=== PATIENT | female | born 1985 | race Caucasian/White ===

== ENCOUNTER 2022-12-08 20:02 | Outpatient (REF) | payer BC, SELFPAY ==
[2022-12-14 17:11] LABS: Age Gdln ACOG Testing Note (.); HPV Aptima Negative (Negative); IGP, Aptima HPV, rfx 16/18,45 Note (.)
== END 2022-12-08 20:03 | disposition home or self-care (01) ==
LOC: LAB 20:02
PROVIDERS: Visit Provider Obstetrics & Gynecology
DX: Z01.419 Encounter for gynecological examination (general) (routine) without abnormal findings (principal)
CPT/HCPCS: 87624; G0145

== ENCOUNTER 2023-02-17 13:23 | Outpatient (OUT) | payer BC, SELFPAY ==
--- NOTE | 2023-02-17 13:59 | US_ITS ---
Patient Name: BRONWYN MEHTA MR#: [id number] : 1985 Exam Date: 02/17/2023 Ordering Doctor: DR Jose Jama . RADIOLOGY REPORT PROCEDURE: MM TOMOSYNTHESIS DIAGNOSTIC BI, 02/17/2023, 13:29 US BREAST BI LIMITED, 02/17/2023, 13:58 COMPARISON: None. INDICATIONS: Right Breast PAin N64.4 Calculator Name NCI Breast Cancer Risk Assessment Tool 5 Year Breast Cancer Risk 0.50% Lifetime Breast Cancer Risk 10.20% Personal Breast Cancer No Personal Ovarian Cancer No Treatments None Family Cancers None LOCATION: [facility] BREAST COMPOSITION: Heterogeneously dense,which may obscure small masses. FINDINGS: DIAGNOSTIC CATEGORY 2--BENIGN FINDING: RIGHT BREAST: No significant suspicious finding. This exam includes additional mammographic views for implant evaluation and shows no visible implant abnormality. No abnormal ultrasound findings. LEFT BREAST: No significant suspicious finding. This exam includes additional mammographic views for implant evaluation and shows no visible implant abnormality. Ultrasound evaluation demonstrates a few small benign appearing lymph nodes within upper-outer quadrant / axillary tail. RECOMMENDATIONS: ROUTINE MAMMOGRAM AND CLINICAL EVALUATION IN 12 MONTHS. PLEASE NOTE: A NORMAL MAMMOGRAM DOES NOT EXCLUDE THE POSSIBILITY OF BREAST CANCER. A CLINICALLY SUSPICIOUS PALPABLE LUMP SHOULD BE BIOPSIED. Dictated by: Warren Beltrán M.D. on 02/17/2023 at 14:20 Approved by: Warren Beltrán M.D. on 02/17/2023 at 14:26
== END 2023-02-17 13:24 | disposition home or self-care (01) ==
LOC: MAMMO 13:24
PROVIDERS: Visit Provider Obstetrics & Gynecology
DX: N64.4 Mastodynia (principal)
CPT/HCPCS: 76642; 77066; G0279

== ENCOUNTER 2023-05-02 06:54 | Outpatient (OUT) | payer BC, SELFPAY ==
--- OUTSIDE RECORDS SUMMARY | 2023-05-02 06:56 | XMS_ITS | CCD ---
Author Name Unknown Address [address] [place] [address] Organization [facility] Care Team Providers Care Transport Manager Name Role Phone PAULINA VERMA Admitting Unavailable PAULINA VERMA Attending Unavailable MARLO GOLDEN Referring Unavailable Marlo Golden Primary Care Provider [phone] PAULINA VERMA Attending Unavailable SELF, SELF Referring Unavailable MARLO GOLDEN Primary Care Unavailable ESTIVEN, DR BALES Attending Unavailable ESTIVEN, DR BALES Admitting Unavailable ESTIVEN, DR BALES Consulting Unavailable REQUEST, NONE LISTED Primary Care Unavaila sp DUBOSE, DR CHELO Youssef Consulting Unavailable RITA PRABHAKAR Admitting Unavailable RITA PRABHAKAR Consulting Unavailable RITA PRABHAKAR Attending Unavailable REQUEST, NONE LISTED Primary Care Unavaila RITA Patel Attending Unavailable RITA PRABHAKAR Admitting Unavailable RITA PRABHAKAR Consulting Unavailable REQUEST, NONE LISTED Primary Care Unavaila RITA Patel Admitting Unavailable RITA PRABHAKAR Consulting Unavailable RITA PRABHAKAR Primary Care Unavailable RITA PRABHAKAR Attending Unavailable SEDRICK, DR CHELO Youssef Consulting Unavailable RITA PRABHAKAR Admitting Unavailable REQUEST, NONE LISTED Primary Care Unavaila RITA Patel Attending Unavailable RITA PRABHAKAR Consulting Unavailable MODESTO, DR DHRUV Sadler Attending Unavailabl e MODESTO, DR DHRUV Sadler Admitting Unavailabl e REQUEST, NONE LISTED Primary Care Unavaila sp SALVADOR, DR DHRUV Sadler Consulting Unavailabl RITA Cloud Admitting Unavailable RITA PRABHAKAR Attending Unavailable REQUEST, NONE LISTED Primary Care Unavaila sp DO, DR SHAJI Casillas Consulting Unavailable ESTIVEN, DR BALES Consulting Unavailable RITA PRABHAKAR Admitting Unavailable RITA PRABHAKAR Consulting Unavailable REQUEST, NONE LISTED Primary Care Unavaila RITA Patel Attending Unavailable RITA PRABHAKAR Procedure Practitioner Unavailab delgado DO, DR SHAJI Casillas Attending Unavailable HI, DR SHAJI Casillas Admitting Unavailable REQUEST, DR NONE LISTED Primary Care Unavaila ble ADDI, FLIP Attending Unavailable ADDI, FLIP Admitting Unavailable ADDI, FLIP Consulting Unavailable REQUEST, NONE LISTED Primary Care Unavaila ble ADDI, FLIP Attending Unavailable ADDI, FLIP Admitting Unavailable ROSS, FLIP Consulting Unavailable REQUEST, DR NONE LISTED Primary Care Unavaila ble VANNA, RITA Admitting Unavailable VANNA, RITA Attending Unavailable REQUEST, NONE LISTED Primary Care Unavaila ble SEDRICK, DR CHELO Youssef Consulting Unavailable PRABHAKAR, RITA Consulting Unavailable SEDRICK, DR CHELO Youssef Consulting Unavailable PRABHAKAR, RITA Admitting Unavailable REQUEST, NONE LISTED Primary Care Unavaila ble VANNA, RITA Attending Unavailable VANNA, RITA Consulting Unavailable ESTIVEN, DR BALES Attending Unavailable ESTIVEN, DR BALES Admitting Unavailable REQUEST, NONE LISTED Primary Care Unavailjocelynn JAMA, DR BALES Consulting Unavailable Tien Ghislaine Unavailable Medications Current Medications Medication Drug Class(es) Dates Sig (Normalized) Sig (Original) brexpiprazole 0.5 mg oral tablet (2 sources) Atypical Antipsychotic Rexulti .5mg .5mg Oral Active 24 hr buPROPion hydrochloride 150 mg extended release oral tablet (3 sources) Aminoketone Start: 06-09-2018 buPROPion 150 MG tablet XL TAKE 3 TABLETS BY MOUTH EACH MORNING 0 06/09/2018 Active take 1 tablet by juan luis th once daily in the morning buPROPion HCl ER (XL) 300 MG TAKE 1 TABL ET BY MOUTH EVERY DAY IN THE MORNING Oral for 90 Active Problems Active Problems Problem Classification Problem Date Documented Da te Episodic/Chronic Abdominal pain (8 sources) Pelvic and perineal pain; Translations: [Unspecified abdominal pain] Onset: 02-02-2021 Episodic Conditions associated with dizziness or vertigo (5 sources) Dizziness and giddiness; Translations: [Vertigo] Onset: 12-15-2020 Episodic Disorders usually diagnosed in infancy, childhood, or adolescence (1 source) 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 childhood and adolescence; Translations: [OTH BEHAVR EMOTIONAL D/O CHILD ADOL] Onset: 12-16-2020 Chronic Nausea and vomiting (3 sources) Nausea; Translations: [Nausea] Onset: 12-15-2020 Episodic Nonmalignant breast conditions (2 sources) Atrophy of breast; Translations: [Breast atrophy] Onset: 06-20-2018 06-20-2018 Episodic Other ear and sense organ disorders (2 sources) Other specified disorders of left ear; Translations: [Fullness in ear, left] Episodic Unclassified (1 source) CONTACT W/AND (SUSP) EXPOS COVID-19; Translations: [CONTACT W/AND (SUSP) EXPOS COVID-19] Onset: 12-16-2020 Past or Other Problems Problem Classification Problem Date Documented Da te Episodic/Chronic Calculus of urinary tract (1 source) Personal history of urinary calculi; Translations: [PERSONAL HISTORY OF URINARY CALCULI] Onset: 02-03-2021 Episodic Diabetes mellitus without complication (4 sources) Impaired fasting glucose; Translations: [IMPAIRED FASTING GLUCOSE] Onset: 09-25-2020 Episodic Immunizations and screening for infectious disease (4 sources) Encounter for immunization; Translations: [ENCOUNTER FOR IMMUNIZATION] Onset: 11-06-2020 Episodic Neoplasms of unspecified nature or uncertain behavior (3 sources) Neoplasm of uncertain behavior of skin; Translations: [Neoplasm of uncertain behavior of skin] Onset: 05-17-2017 05-17-2017 Episodic Other aftercare (1 source) Other telephone quotation clerk (current) drug therapy; Translations: [OTH WAREHOUSE ADMINISTRATIVE ASSISTANT CURRENT DRUG THERAPY] Onset: 02-03-2021 Episodic Other and unspecified benign neoplasm (1 source) Benign neoplasm of skin; Translations: [Benign neoplasm of skin] Onset: 06-06-2017 06-06-2017 Episodic Other complications of ; puerperium affecting management of mother (3 sources) 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; Translations: [VARICOSE VNS LOW EXTREM PUERPERIUM] Onset: 12-05-2020 Episodic Other complications of ; puerperium affecting management of mother (1 source) Other mental disorders complicating childbirth; Translations: [OTH MENTAL D/O COMP CHILDBIRTH] Onset: 12-16-2020 Episodic Other complications of ; puerperium affecting management of mother (4 sources) Maternal care for other (suspected) abnormality and damage, not applicable or unspecified; Translations: [MAT CARE OTH ABN DAMGE NA/UNS] Onset: 10-20-2020 Episodic Other complications of (4 sources) Other specified related conditions, third trimester; Translations: [OTH SPEC PREG RELATED COND 3RD TRI] Onset: 12-04-2020 Episodic Other complications of (4 sources) Decreased movements, third trimester, not applicable or unspecified; Translations: [DECR MOVEMENTS 3RD TRI NA/UNS] Onset: 11-20-2020 Episodic Other and delivery including normal (9 sources) Single live ; Translations: [Encounter for supervision of normal , unspecified, third trimester] Onset: 09-22-2020 Episodic Residual codes; unclassified (1 source) 38 weeks gestation of ; Translations: [38 WEEKS GESTATION OF ] Onset: 12-15-2020 Episodic Residual codes; unclassified (1 source) 36 weeks gestation of ; Translations: [36 WEEKS GESTATION OF ] Onset: 11-29-2020 Episodic Residual codes; unclassified (1 source) 32 weeks gestation of ; Translations: [32 WEEKS GESTATION OF ] Onset: 10-26-2020 Episodic Results Test Name Value Interpretation Reference Range Facil ity UA RANDOM W/MICROSCOPICon BACTERIA NONE SEEN Normal NONE SEEN [facility] Comment on above: Performed By: #### U AMIC #### [facility] [address] [place] [address] Dr. Erin Martinez Bilirubin Ql (U) Negative Normal NEGATIVE [facility] Comment on above: Performed By: #### U AMIC #### [facility] [address] [place] [address] Dr. Erin Martinez CAST NONE SEEN Normal NONE SEEN [facility] Comment on above: Performed By: #### U AMIC #### [facility] [address] [address] [address] Erin Martinez Clarity (U) CLEAR Normal CLEAR [facility] Comment on above: Performed By: #### U AMIC #### [facility] [address] [place] [address] Dr. Erin Martinez Color (U) LT. YELLOW Normal YELLOW [facility] Comment on above: Performed By: #### U AMIC #### [facility] [address] [place] [address] Dr. Erin Martinez Crystals LM Nom (Urine sed) NONE SEEN Normal NONE SEEN [facility] Comment on above: Performed By: #### U AMIC #### [facility] [address] [address] [address] Erin Martinez Epithelial cells LM Ql (Urine sed) FEW Abnormal NONE SEEN /RARE [facility] Comment on above: Performed By: #### U AMIC #### [facility] [address] [address] [address] Erin Martinez Glucose Ql (U) Negative Normal NEGATIVE [facility] Comment on above: Performed By: #### U AMIC #### [facility] [address] [address] [address] Erin Martinez Hemoglobin Ql (U) Negative Normal NEGATIVE [facility] Comment on above: Performed By: #### U AMIC #### [facility] [address] [address] [address] Erin Martinez Ketones Ql (U) Negative Normal NEGATIVE [facility] Comment on above: Performed By: #### U AMIC #### [facility] [address] [address] [address] Erin Martinez LEUKOCYTES Negative Normal NEGATIVE [facility] Comment on above: Performed By: #### U AMIC #### [facility] [address] [address] [address] Erin Martinez MUCOUS NONE SEEN Normal NONE SEEN [facility] Comment on above: Performed By: #### U AMIC #### [facility] [address] [address] [address] Eirn Martinez Nitrite Ql (U) Negative Normal NEGATIVE [facility] Comment on above: Performed By: #### U AMIC #### [facility] [address] [address] [address] Erin Martinez pH (U) 6.5 [pH] Normal 5-9 [facility] Comment on above: Performed By: #### U AMIC #### [facility] [address] [address] [address] Erin Martinez RBC NONE SEEN Abnormal 0-2 [facility] Comment on above: Performed By: #### U AMIC #### [facility] [address] [address] [address] Erin Martinez SPEC GRAVITY <=1.005 Abnormal 1.005-<=1.025 [facility] Comment on above: Performed By: #### U AMIC #### [facility] [address] [address] [address] Erin Martinez UA PROTEIN Negative Normal NEGATIVE/ TRACE [facility] Comment on above: Performed By: #### U AMIC #### [facility] [address] [address] [address] Erin Martinez Urobilinogen Qn (U) 0.2 {Darcie'U}/dL Normal 0.2 - 1. 0 [facility] Comment on above: Performed By: #### U AMIC #### [facility] [address] [address] [address] Erin Martinez WBC NONE SEEN Normal NONE SEEN [facility] Comment on above: Performed By: #### U AMIC #### [facility] [address] [address] [address] Erin Martinez US PELVIS TRANSVAGon 022 US PELVIS TRANSVAG EXAMINATION: US PELVIS TRANSVAG HISTORY: Pelvic and perineal pain , IUD placement COMPARISON: No relevant comparison available. TECHNIQUE: Transabdominal and transvaginal sonographic examination. FINDINGS: UTERUS: IUD in lower uterine segment with distal one half of the IUD appearing to have penetrated into the posterior wall myometrium. Uterus size: 10.1 x 5.1 x 6.3 cm ENDOMETRIUM: Normal homogeneous appearance. Endometrial thickness: 7 mm RIGHT OVARY: Normal size and appearance. Blood flow present within ovary on color Doppler. Ovary size: 3.0 x 1.7 x 2.5 cm LEFT OVARY: Not seen. No suspicious adnexal findings. CUL-DE-SAC: Unremarkable. No significant free fluid. BLADDER: Unremarkable. OTHER: None. IMPRESSION: 1. Patient's IUD appears to have penetrated into the posterior uterine wall myometrium, but not through the myometrium. 2. Dr. Jama was notified of these findings. Electronically authenticated by: CHELO DUBOSE Date: 2021-06-10 10:43 Normal [facility] CBC AUTO DIFFon 02-02-2021 BASO # 0.0 103/ul Normal 0.0-0.1 [facility] Comment on above: Performed By: #### C BC #### [facility] [address] [place] [address] Dr. Erin Martinez Basophils/100 WBC (Bld) 0.6 % Normal 0.2-2.0 [facility] Comment on above: Performed By: #### C BC #### [facility] [address] [place] [address] Dr. Erin Martinez EO # 0.0 103/ul Normal 0.0-0.7 [facility] Comment on above: Performed By: #### C BC #### [facility] [address] [place] [address] Dr. Erin Martinez Eosinophils/100 WBC (Bld) 0.6 % Critically low 0.9-7.0 [facility] Comment on above: Performed By: #### C BC #### [facility] [address] [place] [address] Dr. Erin Martinez Erythrocyte distribution width (RBC) [Ratio] 11.1 % Normal 11.0-15.0 [facility] Comment on above: Performed By: #### C BC #### [facility] [address] [place] [address] Dr. Erin Martinez Hematocrit (Bld) [Volume fraction] 40.5 % Normal 36.0-48.0 [facility] Comment on above: Performed By: #### C BC #### [facility] [address] [place] [address] Dr. Erin Martinez Hemoglobin (Bld) [Mass/Vol] 13.7 g/dL Normal 12.0-16.0 [facility] Comment on above: Performed By: #### C BC #### [facility] [address] [place] [address] Dr. Erin Martinez IG # 0.03 10e3/ul Normal 0.00-0.03 [facility] Comment on above: Performed By: #### C BC #### [facility] [address] [place] [address] Dr. Erin Martinez IG % 0.4 % Normal 0.0-0.5 [facility] Comment on above: Performed By: #### C BC #### [facility] [address] [place] [address] Dr. Erin Martinez LYMPH # 1.5 103/ul Normal 1.2-3.8 [facility] Comment on above: Performed By: #### C BC #### [facility] [address] [place] [address] Dr. Erin Martinez Lymphocytes/100 WBC (Bld) 21.8 % Normal 20.5-60.0 [facility] Comment on above: Performed By: #### C BC #### [facility] [address] [place] [address] Dr. Erin Martinez MANUAL DIFF REQ NO Normal [facility] Comment on above: Performed By: #### C BC #### [facility] [address] [place] [address] Dr. Erin Martinez MCH (RBC) [Entitic mass] 31.4 pg Normal 26.7-34.0 [facility] Comment on above: Performed By: #### C BC #### [facility] [address] [place] [address] Dr. Erin Martinez MCHC (RBC) [Mass/Vol] 33.8 g/dL Normal 29.9-35.2 [facility] Comment on above: Performed By: #### C BC #### [facility] [address] [place] [address] Dr. Erin Martinez MCV (RBC) [Entitic vol] 92.7 fL Normal 81.0-99.0 [facility] Comment on above: Performed By: #### C BC #### [facility] [address] [place] [address] Dr. Erin Martinez MONO # 0.5 103/ul Normal 0.3-0.8 [facility] Comment on above: Performed By: #### C BC #### [facility] [address] [place] [address] Dr. Erin Martinez Monocytes/100 WBC (Bld) 7.4 % Normal 1.7-12.0 [facility] Comment on above: Performed By: #### C BC #### [facility] [address] [place] [address] Dr. Erin Martinez NEUT # 4.9 103/ul Normal 1.4-6.5 [facility] Comment on above: Performed By: #### C BC #### [facility] [address] [place] [address] Dr. Erin Martinez Neutrophils/100 WBC (Bld) 69.2 % Normal 43.0-75.0 [facility] Comment on above: Performed By: #### C BC #### [facility] [address] [place] [address] Dr. Erin Martinez Platelet mean volume (Bld) [Entitic vol] 9.6 fL Normal 9.5-13.5 [facility] Comment on above: Performed By: #### C BC #### [facility] [address] [place] [address] Dr. Erin Martinez PLT 210 103/ul Normal 150-450 [facility] Comment on above: Performed By: #### C BC #### [facility] [address] [place] [address] Dr. Erin Martinez RBC 4.37 106/ul Normal 4.20-5.40 [facility] Comment on above: Performed By: #### C BC #### [facility] [address] [place] [address] Dr. Erin Martinez WBC 7.0 103/ul Normal 4.0-11.0 [facility] Comment on above: Performed By: #### C BC #### [facility] [address] [place] [address] Dr. Erin Martinez ER URINE PROFILEon 1 Bilirubin Ql (U) Negative Normal NEGATIVE [facility] Comment on above: Performed By: #### E JANICE SCHULTZ #### [facility] [address] [place] [address] Dr. Erin Martinez Clarity (U) CLEAR Normal CLEAR [facility] Comment on above: Performed By: #### Kye SCHULTZ UMICRO #### [facility] [address] [place] [address] Dr. Erin Martinez Color (U) LT. YELLOW Normal YELLOW [facility] Comment on above: Performed By: #### Kye SCHULTZ UMICRO #### [facility] [address] [place] [address] Dr. Erin Martinez ERUAHD A micrscopic examination will be performed if indicated. Normal [facility] Comment on above: Performed By: #### Kye SCHULTZ UMICRO #### [facility] [address] [place] [address] Dr. Erin Martinez Glucose Ql (U) Negative Normal NEGATIVE [facility] Comment on above: Performed By: #### Kye SCHULTZ UMICRO #### [facility] [address] [place] [address] Dr. Erin Martinez Hemoglobin Ql (U) SMALL Abnormal NEGATIVE [facility] Comment on above: Performed By: #### Kye SCHULTZ UMICRO #### [facility] [address] [place] [address] Dr. Erin Martinez Ketones Ql (U) Negative Normal NEGATIVE [facility] Comment on above: Performed By: #### Kye SCHULTZ UMICRO #### [facility] [address] [place] [address] Dr. Erin Martinez LEUKOCYTES Negative Normal NEGATIVE [facility] Comment on above: Performed By: #### Kye SCHULTZ UMICRO #### [facility] [address] [place] [address] Dr. Erin Martinez Nitrite Ql (U) Negative Normal NEGATIVE [facility] Comment on above: Performed By: #### Kye SCHULTZ UMICRO #### [facility] [address] [place] [address] Dr. Erin Martinez pH (U) 6.5 [pH] Normal 5-9 [facility] Comment on above: Performed By: #### Kye SCHULTZ UMICRO #### [facility] [address] [place] [address] Dr. Erin Martinez SPEC GRAVITY 1.015 Normal 1.005-<=1.025 [facility] Comment on above: Performed By: #### RONI COSTARO #### [facility] [address] [place] [address] Dr. Erin Martinez UA PROTEIN Negative Normal NEGATIVE/ TRACE [facility] Comment on above: Performed By: #### RONI COSTARO #### [facility] [address] [place] [address] Dr. Erin Martinez UR MICRO IND INDICATED Normal [facility] Comment on above: Performed By: #### RONI COSTARO #### [facility] [address] [place] [address] Dr. Erin Martinez Urobilinogen Qn (U) 0.2 {Darcie'U}/dL Normal 0.2 - 1. 0 [facility] Comment on above: Performed By: #### RONI COSTARO #### [facility] [address] [place] [address] Dr. Erin Martinez LIPASEon 02-02-2021 Lipase [Catalytic activity/Vol] 94.0 U/L Normal 23.0-300.0 [facility] Comment on above: Performed By: #### L IPA #### [facility] [address] [place] [address] Dr. Erin Martinez URINE MICROSCOPIC ONLYon BACTERIA NONE SEEN Normal NONE SEEN [facility] Comment on above: Performed By: #### RONI COSTARO #### [facility] [address] [place] [address] Dr. Erin Martinez Bacteria identified Cx Nom (U) NOT INDICATED Normal [facility] Comment on above: Performed By: #### RONI COSTARO #### [facility] [address] [place] [address] Dr. Erin Martinez CAST NONE SEEN Normal NONE SEEN [facility] Comment on above: Performed By: #### RONI COSTARO #### [facility] [address] [place] [address] Dr. Erin Martinez Crystals LM Nom (Urine sed) NONE SEEN Normal NONE SEEN [facility] Comment on above: Performed By: #### E ANTOINE UMICRO #### [facility] [address] [place] [address] Dr. Erin Martinez Epithelial cells LM Ql (Urine sed) RARE Normal NONE SEEN /RARE [facility] Comment on above: Performed By: #### Kye SCHULTZ UMICRO #### [facility] [address] [place] [address] Dr. Erin Martinez MUCOUS NONE SEEN Normal NONE SEEN [facility] Comment on above: Performed By: #### E RUDomonique, UMICRO #### [facility] [address] [place] [address] Dr. Erin Martinez RBC 0-2 Normal 0-2 [facility] Comment on above: Performed By: #### Kye SCHULTZ UMICRO #### [facility] [address] [place] [address] Dr. Erin Martinez WBC NONE SEEN Normal NONE SEEN [facility] Comment on above: Performed By: #### E ANTOINE UMICRO #### [facility] [address] [place] [address] Dr. Erin Martinez CBC AUTO DIFFon 12-06-2020 BASO # 0.1 103/ul Normal 0.0-0.1 [facility] Comment on above: Performed By: #### C BC #### [facility] [address] [place] [address] Dr. Erin Martinez Basophils/100 WBC (Bld) 0.6 % Normal 0.2-2.0 [facility] Comment on above: Performed By: #### C BC #### [facility] [address] [place] [address] Dr. Erin Martinez EO # 0.1 103/ul Normal 0.0-0.7 [facility] Comment on above: Performed By: #### C BC #### [facility] [address] [place] [address] Dr. Erin Martinez Eosinophils/100 WBC (Bld) 1.0 % Normal 0.9-7.0 [facility] Comment on above: Performed By: #### C BC #### [facility] [address] [address] [address] Erin Martinez Erythrocyte distribution width (RBC) [Ratio] 12.9 % Normal 11.0-15.0 [facility] Comment on above: Performed By: #### C BC #### [facility] [address] [address] [address] Erin Martinez Hematocrit (Bld) [Volume fraction] 36.6 % Normal 36.0-48.0 [facility] Comment on above: Performed By: #### C BC #### [facility] [address] [address] [address] Erin Martinez Hemoglobin (Bld) [Mass/Vol] 12.3 g/dL Normal 12.0-16.0 [facility] Comment on above: Performed By: #### C BC #### [facility] [address] [place] [address] Dr. Erin Martinez IG # 0.09 10e3/ul Critically high 0.00-0.03 [facility] Comment on above: Performed By: #### C BC #### [facility] [address] [place] [address] Dr. Erin Martinez IG % 1.1 % Critically high 0.0-0.5 [facility] Comment on above: Performed By: #### C BC #### [facility] [address] [place] [address] Dr. Erin Martinez LYMPH # 1.1 103/ul Critically low 1.2-3.8 [facility] Comment on above: Performed By: #### C BC #### [facility] [address] [place] [address] Dr. Erin Martinez Lymphocytes/100 WBC (Bld) 13.9 % Critically low 20.5-60.0 [facility] Comment on above: Performed By: #### C BC #### [facility] [address] [place] [address] Dr. Erin Martinez MANUAL DIFF REQ NO Normal [facility] Comment on above: Performed By: #### C BC #### [facility] [address] [place] [address] Dr. Erin Martinez MCH (RBC) [Entitic mass] 33.2 pg Normal 26.7-34.0 [facility] Comment on above: Performed By: #### C BC #### [facility] [address] [place] [address] Dr. Erin Martinez MCHC (RBC) [Mass/Vol] 33.6 g/dL Normal 29.9-35.2 [facility] Comment on above: Performed By: #### C BC #### [facility] [address] [place] [address] Dr. Erin Martinez MCV (RBC) [Entitic vol] 98.9 fL Normal 81.0-99.0 [facility] Comment on above: Performed By: #### C BC #### [facility] [address] [place] [address] Dr. Erin Martinez MONO # 0.6 103/ul Normal 0.3-0.8 [facility] Comment on above: Performed By: #### C BC #### [facility] [address] [place] [address] Dr. Erin Martinez Monocytes/100 WBC (Bld) 7.4 % Normal 1.7-12.0 [facility] Comment on above: Performed By: #### C BC #### [facility] [address] [place] [address] Dr. Erin Martinez NEUT # 6.2 103/ul Normal 1.4-6.5 [facility] Comment on above: Performed By: #### C BC #### [facility] [address] [place] [address] Dr. Erin Martinez Neutrophils/100 WBC (Bld) 76.0 % Critically high 43.0-75.0 [facility] Comment on above: Performed By: #### C BC #### [facility] [address] [place] [address] Dr. Erin Martinez Platelet mean volume (Bld) [Entitic vol] 9.9 fL Normal 9.5-13.5 [facility] Comment on above: Performed By: #### C BC #### [facility] [address], [place] [address] Dr. Erin Martinez PLT 113 103/ul Critically low 150-450 [facility] Comment on above: Result Comment: NO P LATELET CLUMPING SEEN Performed By: #### C BC #### [facility] [address] [address] [address] Erin Martinez RBC 3.70 106/ul Critically low 4.20-5.40 [facility] Comment on above: Performed By: #### C BC #### [facility] [address] [address] [address] Erin Martinez WBC 8.2 103/ul Normal 4.0-11.0 [facility] Comment on above: Performed By: #### C BC #### [facility] [address] [address] [address] Erin Martinez ASYMPTOMATIC COVID-19 ANTIGE Non 12-05-2020 EUA Statement SEE BELOW Normal [facility] Comment on above: Result Comment: This test has not been FDA cleared or approved, but has been authorized by the FDA under an Emergency Use Authorization (EUA) for use by authorized laboratories certified under CLIA that meet the requirements to perform moderate or high complexity testing. This test has been authorized only for the detection of proteins from SARS-CoV-2, not for any other viruses or pathogens. The emergency use of this test is authorized for the duration of the declaration that circumstances exist justifying the authorization of emergency use of in vitro diagnostic tests for detection and/or diagnosis of Covid-19 under section 564(b)(1) of the Act, 21 U.S.C. 360bbb-3(b)(1), unless the declaration is terminated or authorization is revoked sooner. Performed By: #### C BC #### [facility] [address] [place] [address] Dr. Erin Martinez SARS-CoV-2 (COVID-19) RNA MARLA+probe Ql (Unsp spec) Negative Normal NEGATIVE [facility] Comment on above: Result Comment: Nega tive results are presumptive. They do not preclude infection and should not be used as the sole basis for treatment decisions. Additional confirmatory testing by a molecular method should be considered. Performed By: #### C BC #### [facility] [address] [place] [address] Dr. Erin Martinez CBC AUTO DIFFon 12-05-2020 BASO # 0.1 103/ul Normal 0.0-0.1 [facility] Comment on above: Performed By: #### C BC #### [facility] [address] [place] [address] Dr. Erin Martinez Basophils/100 WBC (Bld) 1.1 % Normal 0.2-2.0 [facility] Comment on above: Performed By: #### C BC #### [facility] [address] [place] [address] Dr. Erin Martinez EO # 0.1 103/ul Normal 0.0-0.7 [facility] Comment on above: Performed By: #### C BC #### [facility] [address] [place] [address] Dr. Erin Martinez Eosinophils/100 WBC (Bld) 1.0 % Normal 0.9-7.0 [facility] Comment on above: Performed By: #### C BC #### [facility] [address] [place] [address] Dr. Erin Martinez Erythrocyte distribution width (RBC) [Ratio] 13.0 % Normal 11.0-15.0 [facility] Comment on above: Performed By: #### C BC #### [facility] [address] [place] [address] Dr. Erin Martinez Hematocrit (Bld) [Volume fraction] 38.5 % Normal 36.0-48.0 [facility] Comment on above: Performed By: #### C BC #### [facility] [address] [place] [address] Dr. Erin Martinez Hemoglobin (Bld) [Mass/Vol] 12.9 g/dL Normal 12.0-16.0 [facility] Comment on above: Performed By: #### C BC #### [facility] [address] [place] [address] Dr. Erin Martinez IG # 0.13 10e3/ul Critically high 0.00-0.03 [facility] Comment on above: Performed By: #### C BC #### [facility] [address] [place] [address] Dr. Erin Martinez IG % 1.8 % Critically high 0.0-0.5 [facility] Comment on above: Performed By: #### C BC #### [facility] [address] [place] [address] Dr. Erin Martinez LYMPH # 1.6 103/ul Normal 1.2-3.8 [facility] Comment on above: Performed By: #### C BC #### [facility] [address] [place] [address] Dr. Erin Martinez Lymphocytes/100 WBC (Bld) 22.5 % Normal 20.5-60.0 [facility] Comment on above: Performed By: #### C BC #### [facility] [address] [place] [address] Dr. Erin Martinez MANUAL DIFF REQ NO Normal [facility] Comment on above: Performed By: #### C BC #### [facility] [address] [place] [address] Dr. Erin Martinez MCH (RBC) [Entitic mass] 33.0 pg Normal 26.7-34.0 [facility] Comment on above: Performed By: #### C BC #### [facility] [address] [place] [address] Dr. Erin Martinez MCHC (RBC) [Mass/Vol] 33.5 g/dL Normal 29.9-35.2 [facility] Comment on above: Performed By: #### C BC #### [facility] [address] [place] [address] Dr. Erin Martinez MCV (RBC) [Entitic vol] 98.5 fL Normal 81.0-99.0 [facility] Comment on above: Performed By: #### C BC #### [facility] [address] [place] [address] Dr. Erin Martinez MONO # 0.5 103/ul Normal 0.3-0.8 [facility] Comment on above: Performed By: #### C BC #### [facility] [address] [place] [address] Dr. Erin Martinez Monocytes/100 WBC (Bld) 6.6 % Normal 1.7-12.0 [facility] Comment on above: Performed By: #### C BC #### [facility] [address] [place] [address] Dr. Erin Martinez NEUT # 4.9 103/ul Normal 1.4-6.5 [facility] Comment on above: Performed By: #### C BC #### [facility] [address] [place] [address] Dr. Erin Martinez Neutrophils/100 WBC (Bld) 67.0 % Normal 43.0-75.0 [facility] Comment on above: Performed By: #### C BC #### [facility] [address] [place] [address] Dr. Erin Martinez Platelet mean volume (Bld) [Entitic vol] 10.7 fL Normal 9.5-13.5 [facility] Comment on above: Performed By: #### C BC #### [facility] [address] [place] [address] Dr. Erin Martinez PLT 125 103/ul Critically low 150-450 [facility] Comment on above: Result Comment: smea r reviewed, platelet count confirmed Performed By: #### C BC #### [facility] [address] [place] [address] Dr. Erin Martinez RBC 3.91 106/ul Critically low 4.20-5.40 [facility] Comment on above: Performed By: #### C BC #### [facility] [address] [place] [address] Dr. Erin Martinez WBC 7.3 103/ul Normal 4.0-11.0 [facility] Comment on above: Performed By: #### C BC #### [facility] [address] [place] [address] Dr. Erin Martinez DRUG SCREEN RAPID (URINE)on 12-05-2020 AMP Negative Normal NEGATIVE [facility] Comment on above: Performed By: #### D RUGRPD #### [facility] [address] [place] [address] Dr. Erin Martinez BAR Negative Normal NEGATIVE [facility] Comment on above: Performed By: #### D RUGRPD #### [facility] [address] [place] [address] Dr. Erin Martinez BUP Negative Normal NEGATIVE [facility] Comment on above: Performed By: #### D RUGRPD #### [facility] [address] [place] [address] Dr. Erin Martinez BZO Negative Normal NEGATIVE [facility] Comment on above: Performed By: #### D RUGRPD #### [facility] [address] [place] [address] Dr. Erin Martinez HIRAL Negative Normal NEGATIVE [facility] Comment on above: Performed By: #### D RUGRPD #### [facility] [address] [place] [address] Dr. Erin Martinez CUT-OFFS SEE BELOW Normal [facility] Comment on above: Result Comment: AMP (Amphetamine): 500ng/mL, BAR (Barbituates): 200 ng/mL, BZO (Benzodiazepines): 150 ng/mL, BUP (Buprenorphine): 10 ng/mL, HIRAL (Cocaine): 150 ng/mL, mAMP (Methamphetamine): 500 ng/mL, MTD (Methadone): 200 ng/mL, OPI (Opiates): 100 ng/mL, OXY (Oxycodone): 100 ng/mL, PCP (Phencyclidine): 25 ng/mL, PPX (Propoxyphene): 300 ng/mL, THC (Cannabinoids): 50 ng/mL, TCA (Trycyclic Antidepressants): 300 ng/mL Performed By: #### D RUGRPD #### [facility] [address] [place] [address] Dr. Erin Martinez DRUG CUT HEADER DRUG CLASS TEST SYSTEM CUT-OFF CONCENTRATIONS ARE FOLLOWS: Normal [facility] Comment on above: Performed By: #### D RUGRPD #### [facility] [address] [place] [address] Dr. Erin Martinez mAMP Negative Normal NEGATIVE [facility] Comment on above: Performed By: #### D RUGRPD #### [facility] [address] [address] [address] Erin Martinez MTD Negative Normal NEGATIVE [facility] Comment on above: Performed By: #### D RUGRPD #### [facility] [address] [address] [address] Erin Martinez OPI Negative Normal NEGATIVE [facility] Comment on above: Performed By: #### D RUGRPD #### [facility] [address] [place] [address] Dr. Erin Martinez OXY Negative Normal NEGATIVE [facility] Comment on above: Performed By: #### D RUGRPD #### [facility] [address] [place] [address] Dr. Erin Martinez PCP Negative Normal NEGATIVE [facility] Comment on above: Performed By: #### D RUGRPD #### [facility] [address] [place] [address] Dr. Erin Martinez PPX Negative Normal NEGATIVE [facility] Comment on above: Performed By: #### D RUGRPD #### [facility] [address] [place] [address] Dr. Erin Martinez TCA Negative Normal NEGATIVE [facility] Comment on above: Performed By: #### D RUGRPD #### [facility] [address] [place] [address] Dr. Erin Martinez THC Negative Normal NEGATIVE [facility] Comment on above: Performed By: #### D RUGRPD #### [facility] [address] [place] [address] Dr. Erin Martinez TYPE AND SCREENon 12-05-2020 TYPE AND SCREEN Negative Normal [facility] Comment on above: Performed By: #### C BC #### [facility] [address] [place] [address] Dr. Erin Martinez POINT OF CARE GLUCOSEon 11-18 Glucose [Mass/Vol] 122 mg/dL Critically high 74-106 [facility] Comment on above: Performed By: #### P OCGLUC #### [facility] [address] [address] [address] Erin Martinez US PREG BIOPHY W NON STRESSo n 12-04-2020 US PREG BIOPHY W NON STRESS EXAMINATION: US PREG BIOPHY W NON STRESS HISTORY: Dizziness COMPARISON: Ultrasound biophysical 11/20/2020 TECHNIQUE: Ultrasound biophysical profile was performed. FINDINGS: BREATHING MOVEMENTS: 2.0 GROSS BODY MOVEMENTS: 2.0 TONE: 2.0 QUALITATIVE AMNIOTIC FLUID VOLUME: 2.0 PRESENTATION: Cephalic HEART RATE: 138.5 bpm bpm. AMNIOTIC FLUID VOLUME: 14.7 cm GESTATIONAL AGE: 38 weeks 6 days CONCLUSION: Total biophysical profile score 8.0. Electronically authenticated by: CHELO DUBOSE Date: 2020-12-04 16:40 Normal [facility] US PREG BIOPHY W NON STRESSo n 11-20-2020 US PREG BIOPHY W NON STRESS EXAMINATION: US PREG BIOPHY W NON STRESS HISTORY: Reduced movement COMPARISON: No relevant comparison available. TECHNIQUE: Ultrasound biophysical profile was performed in the radiology department. non-reactive stress testing was performed by nursing staff in the birthing center. FINDINGS: BREATHING MOVEMENTS: 2.0 GROSS BODY MOVEMENTS: 2.0 TONE: 2.0 QUALITATIVE AMNIOTIC FLUID VOLUME: 2.0 PRESENTATION: CEPHALIC HEART RATE: 131.7 bpm H.B./min AMNIOTIC FLUID VOLUME: 13.5 cm cm GESTATIONAL AGE: 36 weeks 6 days CONCLUSION: Total biophysical profile score: 8.0 Electronically authenticated by: SHAJI DO Date: 2020-11-20 16:04 Normal [facility] CHLAMYDIA/GONOCOCCUS MARLA (SW AB/URINE/PAPon 11-14-2020 Chlamydia trachomatis, MARLA Negative Normal Negative [facility] Comment on above: Performed By: #### C BC #### [facility] [address] [address] [address] Erin Martinez Neisseria gonorrhoeae, MARLA Negative Normal Negative [facility] Comment on above: Performed By: #### C BC #### [facility] [address] [place] [address] Dr. Erin Martinez GROUP B STREP CULTUREon 10-19 S. agalactiae Ag Ql (Unsp spec) Culture Observations: NEGATIVE FOR GROUP B STREPTOCOCCUS. Normal [facility] Comment on above: Performed By: #### C BC #### [facility] [address] [address] [address] Erin Martinez PREG GROWTHon 10-20-2020 US PREG GROWTH EXAMINATION: US PREG GROWTH HISTORY: condition affecting obstetrical care of mother COMPARISON: No relevant comparison available. FINDINGS: Heart Rate: 151.7 bpm Number: 1.0 Position: CEPHALIC Amniotic Fluid Volume: 13.6 cm Maximum Vertical Pocket: 4.4 cm BIOMETRY: BPD: 8.0 cm cm; 32 weeks 1 days HC: 29.9 cmcm; 33 weeks 1 days AC: 30.0 cm cm; 33 weeks 6 days FL: 6.0 cm cm; 31 weeks 2 days EFW: 2079.0 grams 56th percentile FL/AC: 20.1 FL/BPD: 75.2 HC/AC: 1.0 GESTATIONAL AGE: Age by EDC: 32 weeks 3 days HELENA by EDC: 12/12/2020 Age by US: 32 weeks, 4 days HELENA by US: 12/11/2020 IMPRESSION: 1. Single live intrauterine with growth detailed above. 2. Previously seen echogenic focus within the left cardiac ventricle is not visible during today's evaluation of the heart. 3. Incidental venous herrera within the placenta. Electronically authenticated by: CHELO DUBOSE Date: 2020-10-20 13:39 Normal [facility] GTT 3 HR PREGon 09-25-2020 Glucose [Mass/Vol] 86 mg/dL Normal 74-106 [facility] Comment on above: Performed By: #### P OCGLUC #### [facility] [address] [address] [address] Erin Martinez Glucose [Mass/Vol] 93 mg/dL Normal [facility] Comment on above: Performed By: #### P OCGLUC #### [facility] [address] [address] [address] Erin Martinez Glucose [Mass/Vol] 78 mg/dL Normal [facility] Comment on above: Performed By: #### P OCGLUC #### [facility] [address] [address] [address] Erin Martinez Glucose [Mass/Vol] 79 mg/dL Normal [facility] Comment on above: Performed By: #### P OCGLUC #### [facility] [address] [place] [address] Dr. Erin Martinez CBC AUTO DIFFon 09-22-2020 BASO # 0.1 103/ul Normal 0.0-0.1 [facility] Comment on above: Performed By: #### C BC #### [facility] [address] [place] [address] Jonathan Ana Basophils/100 WBC (Bld) 0.7 % Normal 0.2-2.0 [facility] Comment on above: Performed By: #### C BC #### [facility] [address] [place] [address] Jonathan Ana EO # 0.1 103/ul Normal 0.0-0.7 [facility] Comment on above: Performed By: #### C BC #### [facility] [address] [place] [address] Jonathan Ana Eosinophils/100 WBC (Bld) 0.7 % Critically low 0.9-7.0 [facility] Comment on above: Performed By: #### C BC #### [facility] [address] [place] [address] Jonathan Ana Erythrocyte distribution width (RBC) [Ratio] 12.7 % Normal 11.0-15.0 [facility] Comment on above: Performed By: #### C BC #### [facility] [address] [place] [address] Jonathan Ana Hematocrit (Bld) [Volume fraction] 36.1 % Normal 36.0-48.0 [facility] Comment on above: Performed By: #### C BC #### [facility] [address] [place] [address] Jonathan Ana Hemoglobin (Bld) [Mass/Vol] 12.2 g/dL Normal 12.0-16.0 [facility] Comment on above: Performed By: #### C BC #### [facility] [address] [place] [address] Jonathancurtis Perez IG # 0.08 10e3/ul Critically high 0.00-0.03 [facility] Comment on above: Performed By: #### C BC #### [facility] [address] [id number] Jonathan Ana IG % 1.2 % Critically high 0.0-0.5 [facility] Comment on above: Performed By: #### C BC #### [facility] [address] [address] Jonathan Ana LYMPH # 1.3 103/ul Normal 1.2-3.8 [facility] Comment on above: Performed By: #### C BC #### [facility] [address] [place] [address] Jonathan Perez Lymphocytes/100 WBC (Bld) 18.6 % Critically low 20.5-60.0 [facility] Comment on above: Performed By: #### C BC #### [facility] [address] [place] [address] Jonathan Perez MANUAL DIFF REQ NO Normal [facility] Comment on above: Performed By: #### C BC #### [facility] [address] [place] [address] Jonathancurtis Perez MCH (RBC) [Entitic mass] 32.8 pg Normal 26.7-34.0 [facility] Comment on above: Performed By: #### C BC #### [facility] [address] [place] [address] Jonathancurtis Perez MCHC (RBC) [Mass/Vol] 33.8 g/dL Normal 29.9-35.2 [facility] Comment on above: Performed By: #### C BC #### [facility] [address] [place] [address] Jonathancurtis Solisen MCV (RBC) [Entitic vol] 97.0 fL Normal 81.0-99.0 [facility] Comment on above: Performed By: #### C BC #### [facility] [address] [place] [address] Jonathan Ana MONO # 0.4 103/ul Normal 0.3-0.8 [facility] Comment on above: Performed By: #### C BC #### [facility] [address] [id number] Jonathan Ana Monocytes/100 WBC (Bld) 5.5 % Normal 1.7-12.0 [facility] Comment on above: Performed By: #### C BC #### [facility] [address] [id number] Jonathan Ana NEUT # 4.9 103/ul Normal 1.4-6.5 [facility] Comment on above: Performed By: #### C BC #### [facility] [address] [id number] Jonathan Ana Neutrophils/100 WBC (Bld) 73.3 % Normal 43.0-75.0 [facility] Comment on above: Performed By: #### C BC #### [facility] [address] [place], [place] [id number] Jonathancurtis Perez Platelet mean volume (Bld) [Entitic vol] 9.8 fL Normal 9.5-13.5 [facility] Comment on above: Performed By: #### C BC #### [facility] [address] [place], [place] [id number] Jonathan Ana PLT 156 103/ul Normal 150-450 [facility] Comment on above: Performed By: #### C BC #### [facility] [address] [place], [place] [id number] Jonathan Ana RBC 3.72 106/ul Critically low 4.20-5.40 [facility] Comment on above: Performed By: #### C BC #### [facility] [address] [place], [place] [id number] Jonathan Ana WBC 6.7 103/ul Normal 4.0-11.0 [facility] Comment on above: Performed By: #### C BC #### [facility] [address] [place], [place] [id number] Jonathan Solisen GLUCOSE - 1HRon 09-22-2020 Glucose [Mass/Vol] 135 mg/dL Critically high 74-106 [facility] Comment on above: Performed By: #### G LU1HR #### [facility] [address] [id number] Jonathan Perez US PREG ANATOMY SINGLEon US PREG ANATOMY SINGLE EXAMINATION: US PREG ANATOMY SINGLE HISTORY: Gestation period, 16 weeks COMPARISON: No relevant comparison available. TECHNIQUE: Transabdominal sonographic examination was performed for obstetrical and evaluation. FINDINGS: Number: 1 Heart Rate: 143.6 bpm H.B. /min Amniotic Fluid Volume: Subjectively normal Placental Location: Anterior without previa. Cervix Length: 3.5 cm , closed ANATOMY: Normal Structures -cerebellum, choroid plexus, cisterna magna, lateral cerebral ventricles, orbits, midline falx, hard palate, four-chamber heart, RVOT, LVOT, stomach, kidneys, bladder, umbilical cord insertion into abdomen, three-vessel cord, cervical spine, thoracic spine, lumbar spine, sacral spine, right upper extremity, left upper extremity, right lower extremity, left lower extremity. SUBOPTIMALLY SEEN: None ABNORMALITIES: 2 mm echogenic focus within the left cardiac ventricle. BIOMETRY: BPD: 4.7 cm 20 weeks 2 days HC: 17.4 cm 19 weeks 6 days AC: 14.4 cm 19 weeks 5 days FL: 3.2 cm 19 weeks 6 days EFW:315.6 grams; (13th percentile) FL/AC: 22.2 FL/BPD: 67.7 HC/AC: 1.2 GESTATIONAL AGE: Age by EDC: 20 weeks 4 days HELENA by EDC: 12/12/2020 Age by current US: 20 weeks 0 days HELENA by current US: 12/16/2020 IMPRESSION: 1. Single live intrauterine with growth detailed above. 2. Echogenic focus within the left cardiac ventricle; nonspecific but this can be seen with the trisomy syndromes. No additional associated findings. Electronically authenticated by: CHELO DUBOSE Date: 2020-07-29 09:02 Normal [facility] Vital Signs Date Time Vital Sign Value Performing Clinician Facility 09-23-2022 10:00-0400 Body height 165.1 cm Ghislaine Chauhan Other [facility] Other 09-23-2022 10:00-0400 Body mass index (BMI) [Ratio] 21.3 kg/m2 Ghislaine Chauhan Other [facility] Other 09-23-2022 10:00-0400 Body weight 58.06 kg Ghislaine Chauhan Other [facility] Other 09-23-2022 10:00-0400 Diastolic blood pressure 68 mm[Hg] Ghislaine Chauhan Other [facility] Other 09-23-2022 10:00-0400 Systolic blood pressure 98 mm[Hg] Ghislaine Chauhan Other [facility] Other 06-20-2018 09:54-0400 BMI (Body Mass Index) 20.72 kg/m2 [employer] 06-20-2018 09:54-0400 BP Diastolic 65 mm[Hg] [facility] 06-20-2018 09:54-0400 BP Systolic 99 mm[Hg] [facility] 06-20-2018 09:54-0400 Height 165.1 cm [facility] 06-20-2018 09:54-0400 Pulse (Heart Rate) 77 /min [facility] 06-20-2018 09:54-0400 Weight 56.47 kg [facility] Encounters Encounter Date Encounter Type Care Provider Facility Start: 04-06-2023 End: 04-06-2023 ambulatory Ghislaine Chauhan Other [facility] Other Start: 04-06-2023 Telephone encounter Ghislaine Chauhan [facility] Start: 09-23-2022 End: 09-23-2022 ambulatory Ghislaine Chauhan Other [facility] Other Start: 09-23-2022 Encounter for genera l adult medical examination without abnormal findings Ghislaine Chauhan [facility] Start: 09-23-2022 Initial preventive medicine new pt age 18-39yrs Ghislaine Chauhan [facility] Start: 06-10-2021 End: 06-10-[address] NII JAMA Facility:[facility] Start: 06-10-2021 End: 06-11-[address] NII JAMA Facility:[facility] Start: 02-02-2021 End: 02-02-[address] DHRUV SALVADOR Facility:[facility] Start: 12-05-2020 End: 12-07-2020 Evaluation and management of inpatient RITA PRABHAKAR Facility:[facility] Start: 12-04-2020 End: 12-04-[address] CHELO DUBOSE Facility:[facility] Start: 11-20-2020 End: 11-20-2020 ambulatory RITA PRABHAKAR Facility:[facility] Start: 11-11-2020 End: 11-11-2020 ambulatory RITA PRABHAKAR Facility:[facility] Start: 11-06-2020 End: 11-07-2020 ambulatory FLIP FONTANA Facility:[facility] Start: 10-20-2020 End: 10-21-2020 ambulatory RITA PRABHAKAR Facility:[facility] Start: 10-16-2020 End: 10-17-2020 ambulatory FLIP FONTANA Facility:[facility] Start: 09-25-2020 End: 09-26-2020 ambulatory RITA PRABHAKAR Facility:[facility] Start: 09-22-2020 End: 09-23-2020 ambulatory RITA PRABHAKAR Facility:[facility] Start: 07-29-2020 End: 07-30-[address] CHELO DUBOSE Facility:[facility] Start: 06-30-[address] SHAJI [place] y:[facility] Start: 06-20-2018 Patient encounter procedure [facility] Start: 06-20-2018 End: 06-20-2018 Patient encounter procedure [facility] Work Phone: [facility] Comment on above: Breast atrophy (Prim cali Dx) Start: 05-25-2017 End: 05-25-2017 Patient encounter procedure [facility] Start: 04-01-2016 Encounter for genera l adult medical examination without abnormal findings Ghislaine Chauhan Other [facility] Other Start: 03-24-2016 Pre-procedure evaluation check Ghislaine Chauhan Other [facility] Other Procedures Date Procedure Procedure Detail Performing Clinician Start: 12-05-2020 Delivery of Products of Conception, External Approach DR NII JAMA Start: 12-05-2020 Drainage of Amniotic Fluid, Therapeutic from Products of Conception, Via Natural or Artificial Opening DR NII JAMA Start: 12-05-2020 Introduction of Othe r Hormone into Peripheral Vein, Percutaneous Approach DR NII JAMA Counseling Ghislaine Chauhan Other Plan of Treatment Date Care Activity Detail Author Start: 11-18-2018 Influenza vaccination INFLUENZ A VACCINE (Season Ended) [facility] Start: 10-28-2004 Screening for malign ant neoplasm of cervix PAP SMEAR DISCUSSION [facility] Start: 10-28-2002 Third diphtheria, te tanus and acellular pertussis (DTaP) vaccination TDAP (ADULT) [facility] Start: 10-28-2001 Tetanus vaccination [facility] Start: 10-28-1996 HIV screening HIV SCREENING DISCUSSI ON [facility] Immunizations Immunization Date Immunization Notes Care Provider [facility] 01-10-2020 influenza, seasonal, injectable Ghislaine Chauhan Other [facility] Other Payers Date Payer Category Payer Unknown [id number] 2018 Unknown [id number] 2018 Unknown xxxxxxxxx [id number] 2018 Unknown [id number] 1983 Unknown [id number] 2.16.840 .[id number] 1983 Unknown [id number] 2.16.84 [id number] 1983 Unknown [id number] 2.16.84 0.1.112259.3.579.2.593 1983 Unknown [id number] 2.16.84 0.1.625039.3.579.2.593 1983 Unknown [id number] 2.16.84 0.1.792696.3.579.2.593 1983 Unknown [id number] 2.16.84 0.1.024269.3.579.2.593 1983 Unknown [id number] 2.16.84 0.1.303636.3.579.2.593 1983 Unknown [id number] 2.16.84 0.1.351810.3.579.2.593 1983 Unknown [id number] 2.16.84 0.1.713916.3.579.2.593 1983 Unknown [id number] 2.16.84 0.1.790705.3.579.2.593 1983 Unknown [id number] 2.16.84 0.1.497578.3.579.2.593 1983 Unknown [id number] 2.16.84 0.1.931159.3.579.2.593 1983 Unknown [id number] 2.16.84 0.1.883620.3.579.2.593 1983 Unknown [id number] 2.16.84 0.1.257609.3.579.2.593 1983 Unknown [id number] 2.16.84 0.1.723567.3.579.2.593 [facility] [id number] Social History Date Type Detail Facility Start: 06-20-2018 Tobacco smoking status [facility] Never smoker [employer] [facility]igned At Not on file [employer] [facility] Other Evaluation note 09-23-2022 Note Date & Type Note Facility 09-23-2022 Evaluation note Encounter Date Diagnosis Assessment Notes Sep, Well adult exam (ICD-10 - Z00.00) We have discussed the necessity of following up with PCP regularly as well as specialists, as needed. Discussed F/U with dentistry and optometry at least yearly. Discussed all preventative measures/ cancer screenings as applicable to this patient. Emphasized the importance of a reduced fat, low carb diet to promote heart health and controlled blood sugars. Reviewed social history and ensured patient is safe within the home today. Pt denies any abuse of alcohol, nicotine, caffeine or recreational drugs. I have ensured patient is of stable mental and physical health today. We have discussed appropriate F/U schedule as well as blood work and vaccinations that apply. All questions answered and patient is sent home pleased, without concerns. [facility] Other Evaluation note Note Date & Type Note Facility Evaluation note No Information [facility] Other History general Narrative - Reported Note Date & Type Note Facility History general Narrative - Reported Type Medical History depression Surgical History Tonsillectomy Surgical History breast augmentation Hospitalization History See above Hospitalization History Childbirth x3 [facility] Other Summary Purpose Family History No Family History Records FoundNo Family History Records FoundNo Family History Records Found Advance Direct[facility] No Advanced Directives Records FoundNo Advanced Directives Records FoundNo Advanced Directives Records Found History of Present Illness * Paulina Verma MD - 06/20/2018 9:15 AM EDT Subjective: Sangeeta Tolbert is an 32 y.o. female who presents for evaluation of breast implants. She has noted increased rippling and wants to make sure this is OK. She had been running recently and may have lost some weight.. No Known Allergies Current Outpatient Medications Medication Sig Dispense Refill buPROPion 150 MG tablet XL TAKE 3 TABLETS BY MOUTH EACH MORNING 0 No current facility-administered medications for this visit. No past medical history on file. Past Surgical History: Procedure Laterality Date EXCISION LESION SKIN EAR EYELID FACE LIP NOSE N/A 05/25/2017 Excision lesion chin x2 (0.5cm, 0.5cm) EXCISION LESION SKIN TRUNK N/A 05/25/2017 Excision lesion back (2cm) REPAIR WOUND COMPLEX CHEEK CHIN FOREHEAD MOUTH NECK N/A 05/25/2017 Laterality: N/A; Surgeon: Paulina Verma MD; Location: [facility] OR REPAIR WOUND COMPLEX TRUNK N/A 05/25/2017 Laterality: N/A; Surgeon: Paulina Vemra MD; Location: [facility] OR AUGMENTATION BREAST 2017 History reviewed. No pertinent family history. Social History Socioeconomic History Marital status: Spouse name: Not on file Number of children: Not on file Years of education: Not on file Highest education level: Not on file Occupational History Not on file Social Needs Financial resource strain: Not on file Food insecurity: Worry: Not on file Inability: Not on file Transportation needs: Medical: Not on file Non-medical: Not on file Tobacco Use Smoking status: Never Smoker Smokeless tobacco: Never Used Substance and Sexual Activity Alcohol use: No Drug use: Not on file Sexual activity: Not on file Lifestyle Physical activity: Days per week: Not on file Minutes per session: Not on file Stress: Not on file Relationships Social connections: Talks on phone: Not on file Gets together: Not on file Attends confucianism service: Not on file Active member of club or organization: Not on file Attends meetings of clubs or organizations: Not on file Relationship status: Not on file Intimate partner violence: Fear of current or ex partner: Not on file Emotionally abused: Not on file Physically abused: Not on file Forced sexual activity: Not on file Other Topics Concern Not on file Social History Narrative Not on file Review of Systems Pertinent items are noted in HPI. General Plastics Review of Systems: Do you have any of the following: Chills, Fatigue, Fever or Night Sweats: no. Ear pain or eye discharge: no. Hearing loss or visual changes: no. Sore throat or chronic cough: no. Shortness of breath: no. Chest pain, swelling, or heart palpitations: no. Abdominal pain: no. Constipation or diarrhea: no. Heartburn or Nausea: no. Rash or skin problems: no. Dizziness or numbness: no. Headaches or Migraines: no. Seizures: no. Joint pain, joint swelling or muscle weakness: no. Bruise or bleed easily: no. Any swollen lymph nodes: no. Objective: Blood pressure 99/65, pulse 77, height 1.651 m (5' 5 ), weight 56.5 kg (124 lb 8 oz). Implants soft. Incisions well approximated. Implants have dropped and rippling noted on inferior aspect. Assessment: Breast implant rippling likely more visible d/t weight loss. Plan: The pt is to call with any further problems or questions, otherwise I will see them back PRN. * ChenCourt suarez - 06/20/2018 9:15 AM EDT General Plastics Review of Systems: Do you have any of the following: Chills, Fatigue, Fever or Night Sweats: no. Ear pain or eye discharge: no. Hearing loss or visual changes: no. Sore throat or chronic cough: no. Shortness of breath: no. Chest pain, swelling, or heart palpitations: no. Abdominal pain: no. Constipation or diarrhea: no. Heartburn or Nausea: no. Rash or skin problems: no. Dizziness or numbness: no. Headaches or Migraines: no. Seizures: no. Joint pain, joint swelling or muscle weakness: no. Bruise or bleed easily: no. Any swollen lymph nodes: no. documented in this encounter Assessments Diagnosis Breast atrophy- Primary Atrophy of breast Additional Source Comments INFORMATION SOURCE (unrecogn ized section and content) DATE CREATED AUTHOR 05/08/2018 [facility] DATE CREATED AUTHOR AUTHOR'S ORGANIZ ATION 06/22/2018 [facility] DATE CREATED AUTHOR AUTHOR'S ORGANIZ ATION 06/18/2021 [facility] Reason for Visit (unrecogniz ed section and content) refill Reason Comments Cosmetic Pt had breast augmen tation in 2017. Pt is having rippling of implants bilaterally. States that she is working out more and not sure if it is due to this. Pt states that the skin is indented at times. FOR RECORDS PERTAINING TO PATIENTS WHO ARE OR HAVE BEEN ENROLLED IN A CHEMICAL DEPENDENCY/SUBSTANCEABUSE PROGRAM, SOME INFORMATION MAY BE OMITTED. This clinical summary was aggregated from multiple sources. Caution should be exercised in using it in the provision of clinical care. This summary normalizes information from multiple sources, and as a consequence, information in this document may materially change the coding, format and clinical context of patient data. In addition, data may be omitted in some cases. CLINICAL DECISIONS SHOULD BE BASED ON THE PRIMARY CLINICAL RECORDS. [employer] provides no warranty or guarantee of the accuracy or completeness of information in this document.
[2023-05-02 07:18] LABS: Basophils Percent Auto 0.9 % (0.2-2.0); Eosinophils Absolute Auto 0.1 10^3/uL (0.0-0.7); Eosinophils Percent Auto 1.4 % (0.9-7.0); Hematocrit 40.9 % (36.0-48.0); Hemoglobin 13.9 g/dL (12.0-16.0); Immature Granulocytes Abs Auto 0.01 10^3/uL (0.00-0.03); Immature Granulocytes Pct Auto 0.2 % (0.0-0.5); Lymphocytes Percent Auto 46.9 % (20.5-60.0); Mean Platelet Volume 9.6 fL (9.5-13.5); Monocytes Absolute Auto 0.4 10^3/uL (0.3-0.8); Monocytes Percent Auto 9.9 % (1.7-12.0); Neutrophils Absolute Auto 1.7 10^3/uL (1.4-6.5); Neutrophils Percent Auto 40.7 % (43.0-75.0); Platelet Count 190 10^3/uL (150-450); Red Blood Count 4.35 10^6/uL (4.20-5.40); Red Cell Distribution Width 11.3 % (11.0-15.0); White Blood Count 4.2 10^3/uL (4.0-11.0)
[2023-05-02 07:51] LABS: Alanine Aminotransferase 17 U/L (14-59); Albumin Globulin Ratio 1.4; Alkaline Phosphatase 37 U/L (46-116); Aspartate Amino Transferase 11 U/L (15-37); BUN Creatinine Ratio 15.3; Bilirubin Total 0.8 mg/dL (0.2-1.0); Calcium 8.8 mg/dL (8.5-10.1); Carbon Dioxide 28.9 mmol/L (21.0-32.0); Chloride 104 mmol/L (98-107); Chol HDL Ratio 1.8; Cholesterol 160 mg/dL (<=200); Estimated Average Glucose 91 mg/dL; Estimated GFR (African America >60 (>=60); Estimated GFR (Non-African Ame >60 (>=60); Globulin 2.8 g/dL; Glucose 93 mg/dL (74-106); Glycohemoglobin A1C 4.8 % (4.5-6.2); HDL Cholesterol 89 mg/dL (40-60); Potassium 3.9 mmol/L (3.5-5.1); Sodium 142 mmol/L (136-145); Total Protein 6.8 g/dL (6.4-8.2); Triglycerides 32 mg/dL (<=150); VLDL CHOLESTEROL 6.4 mg/dL
== END 2023-05-02 06:55 | disposition home or self-care (01) ==
DX: Z79.899 Other long term (current) drug therapy (principal)
CPT/HCPCS: 36415; 80053; 80061; 82306; 83036; 85025

== ENCOUNTER 2024-02-29 20:24 | Outpatient (REF) | payer BC, SELFPAY ==
--- OUTSIDE RECORDS SUMMARY | 2024-02-29 20:27 | XMS_ITS | CCD ---
Author Organization [facility] Care Team Providers Care Circuit Walker Name Role Phone PAULINA VERMA Admitting Unavailable PAULINA VERMA Attending Unavailable MARLO GOLDEN Referring Unavailable Marlo Golden Primary Care Provider PAULINA VERMA Attending Unavailable SELF, SELF Referring Unavailable MARLO GOLDEN Primary Care Unavailable ESTIVEN, DR BALES Attending Unavailable ESTIVEN, DR BALES Admitting Unavailable ESTIVEN, DR BALES Consulting Unavailable REQUEST, NONE LISTED Primary Care Unavaila sp DUBOSE, DR CHELO Youssef Consulting Unavailable RITA PRABHAKAR Admitting Unavailable VANNA, RITA Consulting Unavailable RITA PRABHAKAR Attending Unavailable REQUEST, NONE LISTED Primary Care Unavaila RITA Patel Attending Unavailable VANNA, RITA Admitting Unavailable RITA PRABHAKAR Consulting Unavailable REQUEST, NONE LISTED Primary Care Unavaila RITA Patel Admitting Unavailable VANNA, RITA Consulting Unavailable VANNA, RITA Primary Care Unavailable RITA PRABHAKAR Attending Unavailable SEDRICK, DR CHELO Youssef Consulting Unavailable RITA PRABHAKAR Admitting Unavailable REQUEST, NONE LISTED Primary Care Unavaila RITA Patel Attending Unavailable RITA PRABHAKAR Consulting Unavailable MODESTO, DR DHRUV Sadler Attending Unavailabl e MODESTO, DR DHRUV Sadler Admitting Unavailabl e REQUEST, NONE LISTED Primary Care Unavaila sp SALVADOR, DR DHRUV Sadler Consulting Unavailabl e RITA PRABHAKAR Admitting Unavailable RITA PRABHAKAR Attending Unavailable REQUEST, NONE LISTED Primary Care Unavaila sp DO, DR SHAJI Casillas Consulting Unavailable ESTIVEN, DR BALES Consulting Unavailable RITA PRABHAKAR Admitting Unavailable RITA PRABHAKAR Consulting Unavailable REQUEST, NONE LISTED Primary Care Unavaila RITA Patel Attending Unavailable RITA PRABHAKAR Procedure Practitioner Unavailab delgado DO, DR SHAJI Casillas Attending Unavailable HI, DR SHAJI Casillas Admitting Unavailable REQUEST, NONE LISTED Primary Care Unavaila ble ADDI FLIP Attending Unavailable ADDI, FLIP Admitting Unavailable FLIP FONTANA Consulting Unavailable REQUEST, NONE LISTED Primary Care Unavaila FLIP Mills Attending Unavailable ADDI, FLIP Admitting Unavailable ADDI, FLIP Consulting Unavailable REQUEST, NONE LISTED Primary Care Unavaila ble VANNA, RITA Admitting Unavailable VANNA, RITA Attending Unavailable REQUEST, NONE LISTED Primary Care Unavaila ble SEDRICK, DR CHELO Youssef Consulting Unavailable VANNA, RITA Consulting Unavailable SEDRICK, DR CHELO Youssef Consulting Unavailable RITA PRABHAKAR Admitting Unavailable REQUEST, NONE LISTED Primary Care Unavaila ble VANNA, RITA Attending Unavailable VANNA, RITA Consulting Unavailable ESTIVEN, DR BALES Attending Unavailable ESTIVEN, DR BALES Admitting Unavailable REQUEST, NONE LISTED Primary Care Unavailjocelynn JAMA, DR BALES Consulting Unavailable Ghislaine Chauhan Unavailable Medications Current Medications Medication Drug Class(es) [...] 05-17-2017 Episodic Other aftercare (1 source) 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 Erin Martinez Bilirubin Ql (U) Negative Normal NEGATIVE [facility] Comment on above: Performed By: #### U AMIC #### [facility] [address] [place] [address] Dr. Erin Martinez CAST NONE SEEN Normal NONE SEEN [facility] Comment on above: Performed By: #### U AMIC #### [facility] [address] [place] [address] Dr. Erin Martinez Clarity (U) CLEAR Normal CLEAR [facility] Comment on above: Performed By: #### U AMIC #### [facility] [address] [place] [address] Dr. Erin Martinez Color (U) LT. YELLOW Normal YELLOW [facility] Comment on above: Performed By: #### U AMIC #### [facility] [address] [place] [address] Dr. Erin Martinez Crystals LM Nom (Urine sed) NONE SEEN Normal NONE SEEN [facility] Comment on above: Performed By: #### U AMIC #### [facility] [address] [address] [address] Erin Martinez Epithelial cells LM Ql (Urine sed) FEW Abnormal NONE SEEN /RARE [facility] Comment on above: Performed By: #### U AMIC #### [facility] [address] [address] [address] Erin Martinez Glucose Ql (U) Negative Normal NEGATIVE [facility] [place] [facility] Comment on above: Performed By: #### U AMIC #### [facility] [address] [address] [address] Erin Martinez Hemoglobin Ql (U) Negative Normal NEGATIVE [facility] Comment on above: Performed By: #### U AMIC #### [facility] [address] [address] [address] Erin Martinez Ketones Ql (U) Negative Normal NEGATIVE [facility] [place] [facility] Comment on above: Performed By: #### U AMIC #### [facility] [address] [address] [address] Erin Martinez LEUKOCYTES Negative Normal NEGATIVE [facility] Comment on above: Performed By: #### U AMIC #### [facility] [address] [address] [address] Erin Martinez MUCOUS NONE SEEN Normal NONE SEEN [facility] Comment on above: Performed By: #### U AMIC #### [facility] [address] [place] [address] Dr. Erin Martinez Nitrite Ql (U) Negative Normal NEGATIVE [facility] [place] [facility] Comment on above: Performed By: #### U AMIC #### [facility] [address] [address] [address] Erin Martinez pH (U) 6.5 [pH] Normal 5-9 [facility] Comment on above: Performed By: #### U AMIC #### [facility] [address] [place] [address] Dr. Erin Martinez RBC NONE SEEN Abnormal 0-2 [facility] Comment on above: Performed By: #### U AMIC #### [facility] [address] [place] [address] Dr. Erin Martinez SPEC GRAVITY <=1.005 Abnormal 1.005-<=1.025 [facility] Comment on above: Performed By: #### U AMIC #### [facility] [address] [address] [address] Erin Martinez UA PROTEIN Negative Normal NEGATIVE/ TRACE [facility] Comment on above: Performed By: #### U AMIC #### [facility] [address] [address] [address] Erin Martinez Urobilinogen Qn (U) 0.2 {Darcie'U}/dL Normal 0.2 - 1. 0 [facility] Comment on above: Performed By: #### U AMIC #### [facility] [address] [place] [address] Dr. Erin Martinez WBC NONE SEEN Normal NONE SEEN [facility] Comment on above: Performed By: #### U AMIC #### [facility] [address] [place] [address] Dr. Erin Martinez US PELVIS TRANSVAGon 022 [...] CHELO DUBOSE Date: 2021-06-10 10:43 Normal [facility] CBC AUTO DIFFon 02-02-2021 BASO # 0.0 103/ul Normal 0.0-0.1 [facility] Comment on above: Performed By: #### C BC #### [facility] [address] [place] [address] Dr. Erin Martinez Basophils/100 WBC (Bld) 0.6 % Normal 0.2-2.0 [facility] Comment on above: Performed By: #### C BC #### [facility] [address] [place] [address] Dr. Erin Martinez EO # 0.0 103/ul Normal 0.0-0.7 [facility] Comment on above: Performed By: #### C BC #### [facility] [address] [place] [address] Dr. Erin Martinez Eosinophils/100 WBC (Bld) 0.6 % Critically low 0.9-7.0 [facility] Comment on above: Performed By: #### C BC #### [facility] [address] [place] [address] Dr. Erin Martinez Erythrocyte distribution width (RBC) [Ratio] 11.1 % Normal 11.0-15.0 [facility] Comment on above: Performed By: #### C BC #### [facility] [address] [place] [address] Dr. Erin Martinez Hematocrit (Bld) [Volume fraction] 40.5 % Normal 36.0-48.0 [facility] Comment on above: Performed By: #### C BC #### [facility] [address] [place] [address] Dr. Erin Martinez Hemoglobin (Bld) [Mass/Vol] 13.7 g/dL Normal 12.0-16.0 [facility] Comment on above: Performed By: #### C BC #### [facility] [address] [place] [address] Dr. Erin Martinez IG # 0.03 10e3/ul Normal 0.00-0.03 [facility] Comment on above: Performed By: #### C BC #### [facility] [address] [place] [address] Dr. Erin Martinez IG % 0.4 % Normal 0.0-0.5 [facility] Comment on above: Performed By: #### C BC #### [facility] [address] [place] [address] Dr. Erin Martinez LYMPH # 1.5 103/ul Normal 1.2-3.8 [facility] Comment on above: Performed By: #### C BC #### [facility] [address] [place] [address] Dr. Erin Martinez Lymphocytes/100 WBC (Bld) 21.8 % Normal 20.5-60.0 [facility] Comment on above: Performed By: #### C BC #### [facility] [address] [place] [address] Dr. Erin Martinez MANUAL DIFF REQ NO Normal [facility] Comment on above: Performed By: #### C BC #### [facility] [address] [place] [address] Dr. Erin Martinez MCH (RBC) [Entitic mass] 31.4 pg Normal 26.7-34.0 [facility] Comment on above: Performed By: #### C BC #### [facility] [address] [place] [address] Dr. Erin Martinez MCHC (RBC) [Mass/Vol] 33.8 g/dL Normal 29.9-35.2 [facility] Comment on above: Performed By: #### C BC #### [facility] [address] [place] [address] Dr. Erin Martinez MCV (RBC) [Entitic vol] 92.7 fL Normal 81.0-99.0 [facility] Comment on above: Performed By: #### C BC #### [facility] [address] [place] [address] Dr. Erin Martinez MONO # 0.5 103/ul Normal 0.3-0.8 [facility] Comment on above: Performed By: #### C BC #### [facility] [address] [place] [address] Dr. Erin Martinez Monocytes/100 WBC (Bld) 7.4 % Normal 1.7-12.0 [facility] Comment on above: Performed By: #### C BC #### [facility] [address] [place] [address] Dr. Erin Martinez NEUT # 4.9 103/ul Normal 1.4-6.5 [facility] Comment on above: Performed By: #### C BC #### [facility] [address] [place] [address] Dr. Erin Martinez Neutrophils/100 WBC (Bld) 69.2 % Normal 43.0-75.0 [facility] Comment on above: Performed By: #### C BC #### [facility] [address] [place] [address] Dr. Erin Martinez Platelet mean volume (Bld) [Entitic vol] 9.6 fL Normal 9.5-13.5 [facility] Comment on above: Performed By: #### C BC #### [facility] [address] [place] [address] Dr. Erin Martinez PLT 210 103/ul Normal 150-450 [facility] Comment on above: Performed By: #### C BC #### [facility] [address] [place] [address] Dr. Erin Martinez RBC 4.37 106/ul Normal 4.20-5.40 [facility] Comment on above: Performed By: #### C BC #### [facility] [address] [place] [address] Dr. Erin Martinez WBC 7.0 103/ul Normal 4.0-11.0 [facility] Comment on above: Performed By: #### C BC #### [facility] [address] [place] [address] Dr. Erin Martinez ER URINE PROFILEon 1 Bilirubin Ql (U) Negative Normal NEGATIVE [facility] Comment on above: Performed By: #### RONI COSTARO #### [facility] [address] [place] [address] Dr. Erin Martinez Clarity (U) CLEAR Normal CLEAR [facility] Comment on above: Performed By: #### RONI COSTARO #### [facility] [address] [address] [address] Erin Martinez Color (U) LT. YELLOW Normal YELLOW [facility] Comment on above: Performed By: #### RONI COSTARO #### [facility] [address] [place] [address] Dr. Erin JACKSON A micrscopic examination will be performed if indicated. Normal [facility] Comment on above: Performed By: #### ROSALINE COSTAICRO #### [facility] [address] [place] [address] Dr. Erin Martinez Glucose Ql (U) Negative Normal NEGATIVE [facility] [place] [facility] Comment on above: Performed By: #### RONI COSTARO #### [facility] [address] [place] [address] Dr. Erin Martinez Hemoglobin Ql (U) SMALL Abnormal NEGATIVE [facility] Comment on above: Performed By: #### RONI COSTARO #### [facility] [address] [place] [address] Dr. Erin Martinez Ketones Ql (U) Negative Normal NEGATIVE [facility] [place] [facility] Comment on above: Performed By: #### RONI COSTARO #### [facility] [address] [place] [address] Dr. Erin Martinez LEUKOCYTES Negative Normal NEGATIVE [facility] Comment on above: Performed By: #### RONI COSTARO #### [facility] [address] [place] [address] Dr. Erin Martinez Nitrite Ql (U) Negative Normal NEGATIVE [facility] [place] [facility] Comment on above: Performed By: #### Kye SCHULTZ UMICRO #### [facility] [address] [place] [address] Dr. Erin Martinez pH (U) 6.5 [pH] Normal 5-9 [facility] Comment on above: Performed By: #### ROSALINE COSTAICRO #### [facility] [address] [place] [address] Dr. Erin Martinez SPEC GRAVITY 1.015 Normal 1.005-<=1.025 [facility] Comment on above: Performed By: #### E RUR, UMICRO #### [facility] [address] [place] [address] Dr. Erin Martinez UA PROTEIN Negative Normal NEGATIVE/ TRACE [facility] Comment on above: Performed By: #### E RUR, UMICRO #### [facility] [address] [place] [address] Dr. Erin Martinez UR MICRO IND INDICATED Normal [facility] Comment on above: Performed By: #### E RUR, UMICRO #### [facility] [address] [place] [address] Dr. Erin Martinez Urobilinogen Qn (U) 0.2 {Darcie'U}/dL Normal 0.2 - 1. 0 [facility] Comment on above: Performed By: #### E ANTOINE UMICRO #### [facility] [address] [place] [address] Dr. Erin Martinez LIPASEon 02-02-2021 Lipase [Catalytic activity/Vol] 94.0 U/L Normal 23.0-300.0 [facility] Comment on above: Performed By: #### L IPA #### [facility] [address] [place] [address] Dr. Erin Martinez URINE MICROSCOPIC ONLYon BACTERIA NONE SEEN Normal NONE SEEN [facility] Comment on above: Performed By: #### E ANTOINE UMICRO #### [facility] [address] [place] [address] Dr. Erin Martinez Bacteria identified Cx Nom (U) NOT INDICATED Normal [facility] Comment on above: Performed By: #### E RUDomonique UMICRO #### [facility] [address] [place] [address] Dr. Erin Martinez CAST NONE SEEN Normal NONE SEEN [facility] Comment on above: Performed By: #### E RUR, UMICRO #### [facility] [address] [place] [address] Dr. Erin Martinez Crystals LM Nom (Urine sed) NONE SEEN Normal NONE SEEN [facility] Comment on above: Performed By: #### Kye SCHULTZ UMICRO #### [facility] [address] [place] [address] Dr. Erin Martinez Epithelial cells LM Ql (Urine sed) RARE Normal NONE SEEN /RARE [facility] Comment on above: Performed By: #### ROSALINE COSTAICRO #### [facility] [address] [place] [address] Dr. Erin Martinez MUCOUS NONE SEEN Normal NONE SEEN [facility] Comment on above: Performed By: #### Kye SCHULTZ ICRO #### [facility] [address] [place] [address] Dr. Erin Martinez RBC 0-2 Normal 0-2 [facility] Comment on above: Performed By: #### ROSALINE COSTAICRO #### [facility] [address] [place] [address] Dr. Erin Martinez WBC NONE SEEN Normal NONE SEEN [facility] Comment on above: Performed By: #### Kye SCHULTZ [facility] #### [facility] [address] [place] [address] Dr. Erin Martinez CBC AUTO DIFFon 12-06-2020 BASO # 0.1 103/ul Normal 0.0-0.1 [facility] Comment on above: Performed By: #### C BC #### [facility] [address] [place] [address] Dr. rEin Martinez Basophils/100 WBC (Bld) 0.6 % Normal 0.2-2.0 [facility] Comment on above: Performed By: #### C BC #### [facility] [address] [place] [address] Dr. Erin Martinez EO # 0.1 103/ul Normal 0.0-0.7 [facility] Comment on above: Performed By: #### C BC #### [facility] [address] [place] [address] Dr. Erin Martinez Eosinophils/100 WBC (Bld) 1.0 % Normal 0.9-7.0 [facility] Comment on above: Performed By: #### C BC #### [facility] [address] [place] [address] Dr. Erin Martinez Erythrocyte distribution width (RBC) [Ratio] 12.9 % Normal 11.0-15.0 [facility] Comment on above: Performed By: #### C BC #### [facility] [address] [address] [address] Erin Martinez Hematocrit (Bld) [Volume fraction] 36.6 % Normal 36.0-48.0 [facility] Comment on above: Performed By: #### C BC #### [facility] [address] [place] [address] Dr. Erin Martinez Hemoglobin (Bld) [Mass/Vol] 12.3 g/dL Normal 12.0-16.0 [facility] Comment on above: Performed By: #### C BC #### [facility] [address] [place] [address] Dr. Erin Martinez IG # 0.09 10e3/ul Critically high 0.00-0.03 [facility] Comment on above: Performed By: #### C BC #### [facility] [address] [place] [address] Dr. Erin Martinez IG % 1.1 % Critically high 0.0-0.5 [facility] Comment on above: Performed By: #### C BC #### [facility] [address] [place] [address] Dr. Erin Martinez LYMPH # 1.1 103/ul Critically low 1.2-3.8 [facility] Comment on above: Performed By: #### C BC #### [facility] [address] [place] [address] Dr. Erin Martinez Lymphocytes/100 WBC (Bld) 13.9 % Critically low 20.5-60.0 [facility] Comment on above: Performed By: #### C BC #### [facility] [address] [place] [address] Dr. Erin Martinez MANUAL DIFF REQ NO Normal [facility] Comment on above: Performed By: #### C BC #### [facility] [address] [place] [address] Dr. Erin Martinez MCH (RBC) [Entitic mass] 33.2 pg Normal 26.7-34.0 [facility] Comment on above: Performed By: #### C BC #### [facility] [address] [place] [address] Dr. Erin Martinez MCHC (RBC) [Mass/Vol] 33.6 g/dL Normal 29.9-35.2 [facility] Comment on above: Performed By: #### C BC #### [facility] [address] [place] [address] Dr. Erin Martinez MCV (RBC) [Entitic vol] 98.9 fL Normal 81.0-99.0 [facility] Comment on above: Performed By: #### C BC #### [facility] [address] [place] [address] Dr. Erin Martinez MONO # 0.6 103/ul Normal 0.3-0.8 [facility] Comment on above: Performed By: #### C BC #### [facility] [address] [place] [address] Dr. Erin Martinez Monocytes/100 WBC (Bld) 7.4 % Normal 1.7-12.0 [facility] Comment on above: Performed By: #### C BC #### [facility] [address] [place] [address] Dr. Erin Martinez NEUT # 6.2 103/ul Normal 1.4-6.5 [facility] Comment on above: Performed By: #### C BC #### [facility] [address] [place] [address] Dr. Erin Martinez Neutrophils/100 WBC (Bld) 76.0 % Critically high 43.0-75.0 [facility] Comment on above: Performed By: #### C BC #### [facility] [address] [place] [address] Dr. Erin Martinez Platelet mean volume (Bld) [Entitic vol] 9.9 fL Normal 9.5-13.5 [facility] Comment on above: Performed By: #### C BC #### [facility] [address] [place], [place] [address] Dr. Erin Martinez PLT 113 103/ul Critically low 150-450 [facility] Comment on above: Result Comment: NO P LATELET CLUMPING SEEN Performed By: #### C BC #### [facility] [address] [place], [place] [address] Dr. Erin Martinez RBC 3.70 106/ul Critically low 4.20-5.40 [facility] Comment on above: Performed By: #### C BC #### [facility] [address] [address] [address] Erin Martinez WBC 8.2 103/ul Normal 4.0-11.0 [facility] Comment on above: Performed By: #### C BC #### [facility] [address] [place] [id number] [address] Erin Martinez ASYMPTOMATIC COVID-19 ANTIGE Non 12-05-2020 EUA Statement SEE BELOW Normal [facility] Comment on above: Result Comment: This test [...] sooner. Performed By: #### C BC #### [facility] [address] [place] [address] Dr. Erin Martinez SARS-CoV-2 (COVID-19) RNA MARLA+probe Ql (Unsp spec) Negative Normal NEGATIVE [facility] Comment on above: Result Comment: Nega tive results are presumptive. They do not preclude infection and should not be used as the sole basis for treatment decisions. Additional confirmatory testing by a molecular method should be considered. Performed By: #### C BC #### [facility] [address] [address] [address] Erin Martinez CBC AUTO DIFFon 12-05-2020 BASO # 0.1 103/ul Normal 0.0-0.1 [facility] Comment on above: Performed By: #### C BC #### [facility] [address] [address] [address] Erin Martinez Basophils/100 WBC (Bld) 1.1 % Normal 0.2-2.0 [facility] Comment on above: Performed By: #### C BC #### [facility] [address] [place] [address] Dr. Erin Martinez EO # 0.1 103/ul Normal 0.0-0.7 [facility] Comment on above: Performed By: #### C BC #### [facility] [address] [place] [address] Dr. Erin Martinez Eosinophils/100 WBC (Bld) 1.0 % Normal 0.9-7.0 [facility] Comment on above: Performed By: #### C BC #### [facility] [address] [place] [address] Dr. Erin Martinez Erythrocyte distribution width (RBC) [Ratio] 13.0 % Normal 11.0-15.0 [facility] Comment on above: Performed By: #### C BC #### [facility] [address] [place] [address] Dr. Erin Martinez Hematocrit (Bld) [Volume fraction] 38.5 % Normal 36.0-48.0 [facility] Comment on above: Performed By: #### C BC #### [facility] [address] [place] [address] Dr. Erin Martinez Hemoglobin (Bld) [Mass/Vol] 12.9 g/dL Normal 12.0-16.0 [facility] Comment on above: Performed By: #### C BC #### [facility] [address] [place] [address] Dr. Erin Martinez IG # 0.13 10e3/ul Critically high 0.00-0.03 [facility] Comment on above: Performed By: #### C BC #### [facility] [address] [place] [address] Dr. Erin Martinez IG % 1.8 % Critically high 0.0-0.5 [facility] Comment on above: Performed By: #### C BC #### [facility] [address] [place] [address] Dr. Erin Martinez LYMPH # 1.6 103/ul Normal 1.2-3.8 [facility] Comment on above: Performed By: #### C BC #### [facility] [address] [place] [address] Dr. Erin Martinez Lymphocytes/100 WBC (Bld) 22.5 % Normal 20.5-60.0 [facility] Comment on above: Performed By: #### C BC #### [facility] [address] [place] [address] Dr. Erin Martinez MANUAL DIFF REQ NO Normal [facility] Comment on above: Performed By: #### C BC #### [facility] [address] [place] [address] Dr. Erin Martinez MCH (RBC) [Entitic mass] 33.0 pg Normal 26.7-34.0 [facility] Comment on above: Performed By: #### C BC #### [facility] [address] [place] [address] Dr. Erin Martinez MCHC (RBC) [Mass/Vol] 33.5 g/dL Normal 29.9-35.2 [facility] Comment on above: Performed By: #### C BC #### [facility] [address] [place] [address] Dr. Erin Martinez MCV (RBC) [Entitic vol] 98.5 fL Normal 81.0-99.0 [facility] Comment on above: Performed By: #### C BC #### [facility] [address] [place] [address] Dr. Erin Martinez MONO # 0.5 103/ul Normal 0.3-0.8 [facility] Comment on above: Performed By: #### C BC #### [facility] [address] [address] [address] Erin Martinez Monocytes/100 WBC (Bld) 6.6 % Normal 1.7-12.0 [facility] Comment on above: Performed By: #### C BC #### [facility] [address] [address] [address] Erin Martinez NEUT # 4.9 103/ul Normal 1.4-6.5 [facility] Comment on above: Performed By: #### C BC #### [facility] [address] [address] [address] Erin Martinez Neutrophils/100 WBC (Bld) 67.0 % Normal 43.0-75.0 [facility] Comment on above: Performed By: #### C BC #### [facility] [address] [address] [address] Erin Martinez Platelet mean volume (Bld) [Entitic vol] 10.7 fL Normal 9.5-13.5 [facility] Comment on above: Performed By: #### C BC #### [facility] [address] [address] [address] Erin Martinez PLT 125 103/ul Critically low 150-450 [facility] Comment on above: Result Comment: smea r reviewed, platelet count confirmed Performed By: #### C BC #### [facility] [address] [address] [address] Erin Martinez RBC 3.91 106/ul Critically low 4.20-5.40 [facility] Comment on above: Performed By: #### C BC #### [facility] [address] [address] [address] Erin Martinez WBC 7.3 103/ul Normal 4.0-11.0 [facility] Comment on above: Performed By: #### C BC #### [facility] [address] [address] [address] Erin Martinez DRUG SCREEN RAPID (URINE)on 12-05-2020 AMP Negative Normal NEGATIVE [facility] Comment on above: Performed By: #### D RUGRPD #### [facility] [address] [place] [address] Dr. Erin Martinez BAR Negative Normal NEGATIVE [facility] Comment on above: Performed By: #### D RUGRPD #### [facility] [address] [place] [address] Dr. Erin Martinez BUP Negative Normal NEGATIVE [facility] Comment on above: Performed By: #### D RUGRPD #### [facility] [address] [place] [address] Dr. Erin Martinez BZO Negative Normal NEGATIVE [facility] Comment on above: Performed By: #### D RUGRPD #### [facility] [address] [place] [address] Dr. Erin Martinez HIRAL Negative Normal NEGATIVE [facility] Comment on above: Performed By: #### D RUGRPD #### [facility] [address] [place] [address] Dr. Erin Martinez CUT-OFFS SEE BELOW Normal [facility] Comment on above: Result Comment: AMP (Amphetamine): 500ng/mL, BAR (Barbituates): 200 ng/mL, BZO (Benzodiazepines): 150 ng/mL, BUP (Buprenorphine): 10 ng/mL, HIRAL (Cocaine): 150 ng/mL, mAMP (Methamphetamine): 500 ng/mL, MTD (Methadone): 200 ng/mL, OPI (Opiates): 100 ng/mL, OXY (Oxycodone): 100 ng/mL, PCP (Phencyclidine): 25 ng/mL, PPX (Propoxyphene): 300 ng/mL, THC (Cannabinoids): 50 ng/mL, TCA (Trycyclic Antidepressants): 300 ng/mL Performed By: #### D RUGRPD #### [facility] [address] [place] [address] Dr. Erin Martinez DRUG CUT HEADER DRUG CLASS TEST SYSTEM CUT-OFF CONCENTRATIONS ARE FOLLOWS: Normal [facility] Comment on above: Performed By: #### D RUGRPD #### [facility] [address] [place] [address] Dr. Erin Martinez mAMP Negative Normal NEGATIVE [facility] Comment on above: Performed By: #### D RUGRPD #### [facility] [address] [address] [address] Erin Martinez MTD Negative Normal NEGATIVE [facility] Comment on above: Performed By: #### D RUGRPD #### [facility] [address] [address] [address] Erin Martinez OPI Negative Normal NEGATIVE [facility] Comment on above: Performed By: #### D RUGRPD #### [facility] [address] [place] [address] Dr. Erin Martinez OXY Negative Normal NEGATIVE [facility] Comment on above: Performed By: #### D RUGRPD #### [facility] [address] [place] [address] Dr. Erin Martinez PCP Negative Normal NEGATIVE [facility] Comment on above: Performed By: #### D RUGRPD #### [facility] [address] [place] [address] Dr. Erin Martinez PPX Negative Normal NEGATIVE [facility] Comment on above: Performed By: #### D RUGRPD #### [facility] [address] [address] [address] Erin Martinez TCA Negative Normal NEGATIVE [facility] Comment on above: Performed By: #### D RUGRPD #### [facility] [address] [place] [address] Dr. Erin Martinez THC Negative Normal NEGATIVE [facility] Comment on above: Performed By: #### D RUGRPD #### [facility] [address] [place] [address] Dr. Erin Martinez TYPE AND SCREENon 12-05-2020 TYPE AND SCREEN Negative Normal [facility] Comment on above: Performed By: #### C BC #### [facility] [address] [place] [address] Dr. Erin Martinez POINT OF CARE GLUCOSEon 11-18 Glucose [Mass/Vol] 122 mg/dL Critically high 74-106 [facility] Comment on above: Performed By: #### P OCGLUC #### [facility] [address] [address] [address] Erin Martinez US PREG BIOPHY W [...] by: CHELO DUBOSE Date: 2020-12-04 16:40 Normal [facility] US PREG BIOPHY W NON STRESSo [...] SHAJI DO Date: 2020-11-20 16:04 Normal [facility] CHLAMYDIA/GONOCOCCUS MARLA (SW AB/URINE/PAPon 11-14-2020 Chlamydia trachomatis, MARLA Negative Normal Negative [facility] Comment on above: Performed By: #### C BC #### [facility] [address] [address] [address] Erin Martinez Neisseria gonorrhoeae, MARLA Negative Normal Negative [facility] Comment on above: Performed By: #### C BC #### [facility] [address] [place] [address] Dr. Erin Martinez GROUP B STREP CULTUREon 10-19 S. agalactiae Ag Ql (Unsp spec) Culture Observations: NEGATIVE FOR GROUP B STREPTOCOCCUS. Normal [facility] Comment on above: Performed By: #### C BC #### [facility] [address] [address] [address] Erin Martinez PREG GROWTHon 10-20-2020 US [...] CHELO DUBOSE Date: 2020-10-20 13:39 Normal [facility] GTT 3 HR PREGon 09-25-2020 Glucose [Mass/Vol] 86 mg/dL Normal 74-106 [facility] Comment on above: Performed By: #### P OCGLUC #### [facility] [address] [address] [address] Erin Martinez Glucose [Mass/Vol] 93 mg/dL Normal [facility] Comment on above: Performed By: #### P OCGLUC #### [facility] [address] [address] [address] Erin Martinez Glucose [Mass/Vol] 78 mg/dL Normal [facility] Comment on above: Performed By: #### P OCGLUC #### [facility] [address] [address] [address] Erin Martinez Glucose [Mass/Vol] 79 mg/dL Normal [facility] Comment on above: Performed By: #### P OCGLUC #### [facility] [id number] [address] Erin Martinez CBC AUTO DIFFon 09-22-2020 BASO # 0.1 103/ul Normal 0.0-0.1 [facility] Comment on above: Performed By: #### C BC #### [facility] [address] [place], [place] [id number] Jonathan Ana Basophils/100 WBC (Bld) 0.7 % Normal 0.2-2.0 [facility] Comment on above: Performed By: #### C BC #### [facility] [address] [place] [address] Jonathan Ana EO # 0.1 103/ul Normal 0.0-0.7 [facility] Comment on above: Performed By: #### C BC #### [facility] [address] [place] [address] Jonathan Ana Eosinophils/100 WBC (Bld) 0.7 % Critically low 0.9-7.0 [facility] Comment on above: Performed By: #### C BC #### [facility] [address] [place] [address] Jonathan Ana Erythrocyte distribution width (RBC) [Ratio] 12.7 % Normal 11.0-15.0 [facility] Comment on above: Performed By: #### C BC #### [facility] [address] [place] [address] Jonathan Ana Hematocrit (Bld) [Volume fraction] 36.1 % Normal 36.0-48.0 [facility] Comment on above: Performed By: #### C BC #### [facility] [address] [place], [place] [id number] Jonathan Ana Hemoglobin (Bld) [Mass/Vol] 12.2 g/dL Normal 12.0-16.0 [facility] Comment on above: Performed By: #### C BC #### [facility] [address] [place] [address] Jonathan Ana IG # 0.08 10e3/ul Critically high 0.00-0.03 [facility] Comment on above: Performed By: #### C BC #### [facility] [address] [place], [place] [id number] Jonathancurtis Perez IG % 1.2 % Critically high 0.0-0.5 [facility] Comment on above: Performed By: #### C BC #### [facility] [address] [place], [place] [id number] Jonathan Ana LYMPH # 1.3 103/ul Normal 1.2-3.8 [facility] Comment on above: Performed By: #### C BC #### [facility] [address] [place], [place] [id number] Jonathan Perez Lymphocytes/100 WBC (Bld) 18.6 % Critically low 20.5-60.0 [facility] Comment on above: Performed By: #### C BC #### [facility] [address] [place] [address] Jonathan Perez MANUAL DIFF REQ NO Normal [facility] Comment on above: Performed By: #### C BC #### [facility] [address] [place] [address] Jonathan Perez MCH (RBC) [Entitic mass] 32.8 pg Normal 26.7-34.0 [facility] Comment on above: Performed By: #### C BC #### [facility] [address] [place] [address] Jonathan Perez MCHC (RBC) [Mass/Vol] 33.8 g/dL Normal 29.9-35.2 [facility] Comment on above: Performed By: #### C BC #### [facility] [address] [place] [address] Jonathancurtis Perez MCV (RBC) [Entitic vol] 97.0 fL Normal 81.0-99.0 [facility] Comment on above: Performed By: #### C BC #### [facility] [address] [place] [address] Jonathan Ana MONO # 0.4 103/ul Normal 0.3-0.8 [facility] Comment on above: Performed By: #### C BC #### [facility] [address] [id number] Jonathan Ana Monocytes/100 WBC (Bld) 5.5 % Normal 1.7-12.0 [facility] Comment on above: Performed By: #### C BC #### [facility] [address] [id number] Jonathan Ana NEUT # 4.9 103/ul Normal 1.4-6.5 [facility] Comment on above: Performed By: #### C BC #### [facility] [address] [id number] Jonathan Ana Neutrophils/100 WBC (Bld) 73.3 % Normal 43.0-75.0 [facility] Comment on above: Performed By: #### C BC #### [facility] [address] [place] [address] Jonathancurtis Solisen Platelet mean volume (Bld) [Entitic vol] 9.8 fL Normal 9.5-13.5 [facility] Comment on above: Performed By: #### C BC #### [facility] [address] [place], [place] [id number] Jonathan Ana PLT 156 103/ul Normal 150-450 [facility] Comment on above: Performed By: #### C BC #### [facility] [address] [place], [place] [address] Jonathan Ana RBC 3.72 106/ul Critically low 4.20-5.40 [facility] Comment on above: Performed By: #### C BC #### [facility] [address] [place], [place] [address] Jonathan Ana WBC 6.7 103/ul Normal 4.0-11.0 [facility] Comment on above: Performed By: #### C BC #### [facility] [address] [place], [place] [id number] Jonathan Perez GLUCOSE - 1HRon 09-22-2020 Glucose [Mass/Vol] 135 mg/dL Critically high 74-106 [facility] Comment on above: Performed By: #### G LU1HR #### [facility] [address] [place], [place] [address] Jonathan Perez US PREG ANATOMY SINGLEon US [...] CHELO DUBOSE Date: 2020-07-29 09:02 Normal [facility] Vital Signs Date Time Vital Sign Value Performing Clinician Facility 09-23-2022 10:00-0400 Body height 165.1 cm Ghislaine Chauhan Other [facility] Other 09-23-2022 10:00-0400 Body mass index (BMI) [Ratio] 21.3 kg/m2 Ghislaine Chauhan Other [facility] Other 09-23-2022 10:00-0400 Body weight 58.06 kg Ghislaine Chauhan Other [facility] Other 09-23-2022 10:00-0400 Diastolic blood pressure 68 mm[Hg] Ghislaine Chauhan Other [facility] Other 09-23-2022 10:00-0400 Systolic blood pressure 98 mm[Hg] Ghislaine Chauhan Other [facility] Other 06-20-2018 09:54-0400 BMI (Body Mass Index) 20.72 kg/m2 [facility] 06-20-2018 09:54-0400 BP Diastolic 65 mm[Hg] [facility]ogac[facility] 06-20-2018 09:54-0400 BP Systolic 99 mm[Hg] PaulinaNogacom 06-20-2018 09:54-0400 Height 165.1 cm PaulinaNogacom 06-20-2018 09:54-0400 Pulse (Heart Rate) 77 /min PaulinaNogacom 06-20-2018 09:54-0400 Weight 56.47 kg [facility]ogac[facility] Encounters Encounter Date Encounter Type Care Provider Facility Start: 04-06-2023 End: 04-06-2023 ambulatory Ghislaien Chauhan Other [facility] Other Start: 04-06-2023 Telephone encounter Ghislaine Chauhan [facility] Start: 09-23-2022 End: 09-23-2022 ambulatory Ghislaine Chauhan Other [facility] Other Start: 09-23-2022 Encounter for genera l adult medical examination without abnormal findings Ghislaine Chauhan [facility] Start: 09-23-2022 Initial preventive medicine new pt age 18-39yrs [facility]hislaine Chauhan [facility] Start: 06-10-2021 End: 03-24-[address] NII JAMA Facility:[facility] Start: 06-10-2021 [...] [place] y:[facility]1 Start: 06-20-2018 Patient encounter procedure [facility] Start: 06-20-2018 End: 06-20-2018 Patient encounter procedure [facility] Work Phone: [facility] Comment on above: Breast atrophy (Prim cali Dx) Start: 05-25-2017 End: 05-25-2017 Patient encounter procedure [facility] Start: 04-01-2016 Encounter for genera l adult medical examination without abnormal findings Ghislaine Chauhan Other [facility] Other Start: 03-24-2016 Pre-procedure evaluation check Ghislaine Chauhan Other [facility] Other Procedures Date Procedure Procedure Detail Performing [...] Influenza vaccination INFLUENZ A VACCINE (Season Ended) [facility] Start: 10-28-2004 Screening for malign ant neoplasm of cervix PAP SMEAR DISCUSSION [facility] Start: 10-28-2002 Third diphtheria, te tanus and acellular pertussis (DTaP) vaccination TDAP (ADULT) [facility] Start: 10-28-2001 Tetanus vaccination [facility] Start: 10-28-1996 HIV screening HIV SCREENING DISCUSSI ON [facility] Immunizations Immunization Date Immunization Notes Care Provider [facility] 01-10-2020 influenza, seasonal, injectable Ghislaine Chauhan Other [facility] Other Payers Date Payer Category Payer Unknown [id number] 2018 Unknown [id number] 2018 Unknown xxxxxxxxx .[id number] 2018 Unknown [id number] 1985 Unknown [id number] 2.16.840 .[id number] 1983 Unknown [id number] 2.16.84 [id number] 1983 Unknown [id number] 2.16.84 0.1.308268.3.579.2.593 1983 Unknown [id number] 2.16.84 0.1.360384.3.579.2.593 1983 Unknown [id number] 2.16.84 0.1.101969.3.579.2.593 1983 Unknown [id number] 2.16.84 0.1.892515.3.579.2.593 1983 Unknown [id number] 2.16.84 0.1.576906.3.579.2.593 1983 Unknown [id number] 2.16.84 0.1.731270.3.579.2.593 1983 Unknown [id number] 2.16.84 0.1.111052.3.579.2.593 1983 Unknown [id number] 2.16.84 0.1.210643.3.579.2.593 1983 Unknown [id number] 2.16.84 0.1.733325.3.579.2.593 1983 Unknown [id number] 2.16.84 0.1.667587.3.579.2.593 1983 Unknown [id number] 2.16.84 0.1.150398.3.579.2.593 1983 Unknown [id number] 2.16.84 0.1.991568.3.579.2.593 1983 Unknown [id number] 2.16.84 0.1.672905.3.579.2.593 [facility] [id number] Social History Date Type Detail Facility Start: 06-20-2018 Tobacco smoking status [facility] Sex Assigned At Not on file [facility] Sex Assigned At Sex Assigned At [facility] Other Evaluation note 09-23-2022 Note Date & [...] patient is sent home pleased, without concerns. [facility] Other Evaluation note Note Date & Type Note Facility Evaluation note No Information [facility] Other History general Narrative - Reported Note Date & Type Note Facility History general Narrative - Reported Type Medical History depression Surgical History Tonsillectomy Surgical History breast augmentation Hospitalization History See above Hospitalization History Childbirth x3 [facility] Other Summary Purpose Family History No Family [...] TRUNK N/A 05/25/2017 Laterality: N/A; Surgeon: Paulina Verma MD; Location: [facility] OR AUGMENTATION BREAST [...] file Gets together: Not on file Attends anabaptist service: Not on file Active member of [...] I will see them back PRN. * Court Hoang - 06/20/2018 9:15 AM EDT General Plastics [...] section and content) DATE CREATED AUTHOR 05/08/2018 [facility] DATE CREATED AUTHOR AUTHOR'S ORGANIZ ATION 06/22/2018 [facility] DATE CREATED AUTHOR AUTHOR'S ORGANIZ ATION 06/18/2021 [facility] Reason for Visit (unrecogniz ed [...] BE BASED ON THE PRIMARY CLINICAL RECORDS. [employer] provides no warranty or guarantee of the accuracy or completeness of information in this document.
== END 2024-02-29 20:25 | disposition home or self-care (01) ==
LOC: LAB 20:24
PROVIDERS: Visit Provider Obstetrics & Gynecology
DX: Z01.419 Encounter for gynecological examination (general) (routine) without abnormal findings (principal)
CPT/HCPCS: 87624; 88175

== ENCOUNTER 2024-03-07 10:25 | Outpatient (OUT) | payer BC, SELFPAY ==
--- NOTE | 2024-03-07 10:27 | MM_ITS ---
Patient Name: BRONWYN MEHTA MR#: [id number] : 1985 Exam Date: 03/07/2024 Ordering Doctor: DR Jose Jama . RADIOLOGY REPORT PROCEDURE: MM TOMOSYNTHESIS SCREENING BI COMPARISON: MM TOMOSYNTHESIS DIAGNOSTIC BI, 02/17/2023. INDICATIONS: Screening Calculator Name NCI Breast Cancer Risk Assessment Tool 5 Year Breast Cancer Risk 0.60% Lifetime Breast Cancer Risk 10.20% Personal Breast Cancer No Personal Ovarian Cancer No Treatments None Family Cancers None LOCATION: [facility] BREAST COMPOSITION: The breasts are heterogeneously dense,which may obscure small masses. FINDINGS: DIAGNOSTIC CATEGORY 2--BENIGN FINDING. NO CHANGE FROM COMPARISON. This exam includes additional mammographic views for implant evaluation and shows no visible implant abnormality. RIGHT BREAST: No significant suspicious finding. LEFT BREAST: No significant suspicious finding. RECOMMENDATIONS: ROUTINE MAMMOGRAM AND CLINICAL EVALUATION IN 12 MONTHS. PLEASE NOTE: A NORMAL MAMMOGRAM DOES NOT EXCLUDE THE POSSIBILITY OF BREAST CANCER. A CLINICALLY SUSPICIOUS PALPABLE LUMP SHOULD BE BIOPSIED. Dictated by: Yuri Albarado MD on 03/07/2024 at 13:21 Approved by: Yuri Albarado MD on 03/07/2024 at 13:22
--- OUTSIDE RECORDS SUMMARY | 2024-03-07 10:32 | XMS_ITS | CCD ---
Author Organization [facility] CliniSyfl Care Team Providers Care Foreclosure Home Inspector Name Role Phone PAULINA VERMA Admitting Unavailable PAULINA VERMA Attending Unavailable MARLO GOLDEN Referring Unavailable Marlo Golden Primary Care Provider PAULINA VERMA Attending Unavailable SELF, SELF Referring Unavailable MARLO GOLDEN Primary Care Unavailable EVITA, DR BALES Attending Unavailable EVITA, DR BALES Admitting Unavailable EVITA, DR BALES Consulting Unavailable REQUEST, NONE LISTED Primary Care Unavaila sp DUBOSE, DR CHELO Youssef Consulting Unavailable RITA PRABHAKAR Admitting Unavailable VANNA, RITA Consulting Unavailable RITA PRABHAKAR Attending Unavailable REQUEST, NONE LISTED Primary Care Unavaila ble RITA PRABHAKAR Attending Unavailable VANNA, RITA Admitting Unavailable RITA [...] sp DO, DR SHAJI Casillas Consulting Unavailable EVITA, DR BALES Consulting Unavailable RITA PRABHAKAR Admitting [...] Unavailable SEDRICK, DR CHELO Youssef Consulting Unavailable VANNA, RITA Admitting Unavailable REQUEST, NONE LISTED Primary Care Unavaila ble VANNA, RITA Attending Unavailable VANNA, RITA Consulting Unavailable EVITA, DR BALES Attending Unavailable EVITA, DR BALES Admitting Unavailable REQUEST, NONE LISTED Primary Care Unavailjocelynn JAMA, DR BALES Consulting Unavailable Ghislaine Chauhan Unavailable Ghislaine Chauhan MD Primary Care Provider [phone] NII JAMA Attending Unavailable Medications Current Medications Medication Drug Class(es) Dates Sig (Normalized) Sig (Original) ARIPiprazole 2 mg oral tablet (2 sources) Atypical Antipsychotic Start: 11-09-2023 take 1 tablet by mouth once daily ARIPiprazole (Abilify) 2 MG tablet Take 2 mg by mouth Daily 11/09/2023 Active brexpiprazole 0.5 mg oral tablet (5 sources) Atypical Antipsychotic Start: 10-25-2022 take 1 tablet by mouth in the morning Rexulti 0.5 MG tablet Take 1 tablet by mouth in the morning. 10/25/2022 Active 24 hr buPROPion hydrochloride 300 mg extended release oral tablet (6 sources) Aminoketone Start: 11-16-2022 take 1 tablet by mouth every twenty-four hours in the morning buPROPion XL (Wellbutrin XL) 300 MG 24 hr tablet Take 300 mg by mouth in the morning. 11/16/2022 Active Start: 06-09-2018 buPROPion 150 MG tablet XL TAKE 3 TABLETS BY MOUTH EACH MORNING 0 06/09/2018 Active take 1 tablet by juan luis th once daily in the morning buPROPion HCl ER (XL) 300 MG TAKE 1 TABLET BY MOUTH EVERY DAY IN THE MORNING Oral for 90 Active Levonorgestrel (2 sources) Progestin, Progestin-containing Intrauterine Device Levonorgestrel (EDWAR NA, 52 MG, IU) by Intrauterine route Active Problems Active Problems Problem Classification Problem [...] ear; Translations: [Fullness in ear, left] Episodic Other screening for suspected conditions (not mental disorders or infectious disease) (4 sources) Patient encounter status; Translations: [Encounter for screening mammogram for malignant neoplasm of breast] Onset: 02-29-2024 02-29-2024 Episodic Unclassified (1 source) CONTACT W/AND (SUSP) [...] 05-17-2017 Episodic Other aftercare (1 source) Other exterminator helper (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 Erin Martinez Bilirubin Ql (U) Negative Normal NEGATIVE [facility] Comment on above: Performed By: #### U AMIC #### [facility] [address] [address] [address] Erin Martinez CAST NONE SEEN Normal NONE SEEN [facility] Comment on above: Performed By: #### U AMIC #### [facility] [address] [address] [address] Erin Martinez Clarity (U) CLEAR Normal CLEAR [facility] Comment on above: Performed By: #### U AMIC #### [facility] [address] [address] [address] Erin Martinez Color (U) LT. YELLOW Normal YELLOW [facility] Comment on above: Performed By: #### U AMIC #### [facility] [address] [place] [address] Dr. Erin Martinez Crystals LM Nom (Urine sed) NONE SEEN Normal NONE SEEN [facility] Comment on above: Performed By: #### U AMIC #### [facility] [address] [address] [address] Erin Martinez Epithelial cells LM Ql (Urine sed) FEW Abnormal NONE SEEN /RARE [facility] Comment on above: Performed By: #### U AMIC #### [facility] [address] [address] [address] Erin Martinez Glucose Ql (U) Negative Normal NEGATIVE [facility] Comment on above: Performed By: #### U AMIC #### [facility] [address] [address] [address] Erin Martinez Hemoglobin Ql (U) Negative Normal NEGATIVE [facility] Comment on above: Performed By: #### U AMIC #### [facility] [address] [address] [address] Erin Martinez Ketones Ql (U) Negative Normal NEGATIVE [facility] Comment on above: Performed By: #### U AMIC #### [facility] [address] [address] [address] Erin Martinez LEUKOCYTES Negative Normal NEGATIVE [facility] Comment on above: Performed By: #### U AMIC #### [facility] [address] [address] [address] Erin Martinez MUCOUS NONE SEEN Normal NONE SEEN [facility] Comment on above: Performed By: #### U AMIC #### [facility] [address] [address] [address] Erin Martinez Nitrite Ql (U) Negative Normal NEGATIVE [facility] Comment on above: Performed By: #### U AMIC #### [facility] [address] [place] [address] Dr. Erin Martinez pH (U) 6.5 [pH] Normal 5-9 [facility] Comment on above: Performed By: #### U AMIC #### [facility] [address] [place] [address] Dr. Erin Martinez RBC NONE SEEN Abnormal 0-2 [facility] Comment on above: Performed By: #### U AMIC #### [facility] [address] [place] [address] Dr. Erin Martinez SPEC GRAVITY <=1.005 Abnormal 1.005-<=1.025 [facility] Comment on above: Performed By: #### U AMIC #### [facility] [address] [place] [address] Dr. Erin Martinez UA PROTEIN Negative Normal NEGATIVE/ TRACE [facility] Comment on above: Performed By: #### U AMIC #### [facility] [address] [place] [address] Dr. Erin Martinez Urobilinogen Qn (U) 0.2 {Darcie'U}/dL Normal 0.2 - 1. 0 [facility] Comment on above: Performed By: #### U AMIC #### [facility] [address] [place] [address] Dr. Erin Martinez WBC NONE SEEN Normal NONE SEEN [facility] Comment on above: Performed By: #### U AMIC #### [facility] [address] [place] [address] Dr. Erin Martinez US PELVIS TRANSVAGon 03-24-2 022 US PELVIS TRANSVAG EXAMINATION: US PELVIS [...] CHELO DUBOSE Date: 2021-06-10 10:43 Normal [facility] CBC AUTO DIFFon 02-02-2021 BASO # 0.0 103/ul Normal 0.0-0.1 [facility] Comment on above: Performed By: #### C BC #### [facility] [address] [place] [address] Dr. Erin Martinez Basophils/100 WBC (Bld) 0.6 % Normal 0.2-2.0 [facility] Comment on above: Performed By: #### C BC #### [facility] [address] [place] [address] Dr. Erin Martinez EO # 0.0 103/ul Normal 0.0-0.7 [facility] Comment on above: Performed By: #### C BC #### [facility] [address] [address] [address] Erin Martinez Eosinophils/100 WBC (Bld) 0.6 % Critically low 0.9-7.0 [facility] Comment on above: Performed By: #### C BC #### [facility] [address] [place] [address] Dr. Erin Martinez Erythrocyte distribution width (RBC) [Ratio] 11.1 % Normal 11.0-15.0 [facility] Comment on above: Performed By: #### C BC #### [facility] [address] [place] [address] Dr. Erin Martinez Hematocrit (Bld) [Volume fraction] 40.5 % Normal 36.0-48.0 [facility] Comment on above: Performed By: #### C BC #### [facility] [address] [place] [address] Dr. Erin Martinez Hemoglobin (Bld) [Mass/Vol] 13.7 g/dL Normal 12.0-16.0 [facility] Comment on above: Performed By: #### C BC #### [facility] [address] [place] [address] Dr. Erin Martinez IG # 0.03 10e3/ul Normal 0.00-0.03 [facility] Comment on above: Performed By: #### C BC #### [facility] [address] [place] [address] Dr. Erin Martinez IG % 0.4 % Normal 0.0-0.5 [facility] Comment on above: Performed By: #### C BC #### [facility] [address] [place] [address] Dr. Erin Martinez LYMPH # 1.5 103/ul Normal 1.2-3.8 [facility] Comment on above: Performed By: #### C BC #### [facility] [address] [place] [address] Dr. Erin Martinez Lymphocytes/100 WBC (Bld) 21.8 % Normal 20.5-60.0 [facility] Comment on above: Performed By: #### C BC #### [facility] [address] [place] [address] Dr. Erin Martinez MANUAL DIFF REQ NO Normal [facility] Comment on above: Performed By: #### C BC #### [facility] [address] [place] [address] Dr. Erin Martinez MCH (RBC) [Entitic mass] 31.4 pg Normal 26.7-34.0 [facility] Comment on above: Performed By: #### C BC #### [facility] [address] [address] [address] Erin Martinez MCHC (RBC) [Mass/Vol] 33.8 g/dL Normal 29.9-35.2 [facility] Comment on above: Performed By: #### C BC #### [facility] [address] [address] [address] Erin Martinez MCV (RBC) [Entitic vol] 92.7 fL Normal 81.0-99.0 [facility] Comment on above: Performed By: #### C BC #### [facility] [address] [place] [address] Dr. Erin Martinez MONO # 0.5 103/ul Normal 0.3-0.8 [facility] Comment on above: Performed By: #### C BC #### [facility] [address] [place] [address] Dr. Erin Martinez Monocytes/100 WBC (Bld) 7.4 % Normal 1.7-12.0 [facility] Comment on above: Performed By: #### C BC #### [facility] [address] [place] [address] Dr. Erin Martinez NEUT # 4.9 103/ul Normal 1.4-6.5 [facility] Comment on above: Performed By: #### C BC #### [facility] [address] [place] [address] Dr. Erin Martinez Neutrophils/100 WBC (Bld) 69.2 % Normal 43.0-75.0 [facility] Comment on above: Performed By: #### C BC #### [facility] [address] [place] [address] Dr. Erin Martinez Platelet mean volume (Bld) [Entitic vol] 9.6 fL Normal 9.5-13.5 [facility] Comment on above: Performed By: #### C BC #### [facility] [address] [place] [address] Dr. Erin Martinez PLT 210 103/ul Normal 150-450 [facility] Comment on above: Performed By: #### C BC #### [facility] [address] [place] [address] Dr. Erin Martinez RBC 4.37 106/ul Normal 4.20-5.40 [facility] Comment on above: Performed By: #### C BC #### [facility] [address] [place] [address] Dr. Erin Martinez WBC 7.0 103/ul Normal 4.0-11.0 [facility] Comment on above: Performed By: #### C BC #### [facility] [address] [place] [address] Dr. Erin Martinez ER URINE PROFILEon 1 Bilirubin Ql (U) Negative Normal NEGATIVE [facility] Comment on above: Performed By: #### RONI COSTARO #### [facility] [address] [place] [address] Dr. Erin Martinez Clarity (U) CLEAR Normal CLEAR [facility] Comment on above: Performed By: #### RONI COSTARO #### [facility] [address] [place] [address] Dr. Erin Martinez Color (U) LT. YELLOW Normal YELLOW [facility] Comment on above: Performed By: #### RONI COSTARO #### [facility] [address] [place] [address] Dr. Erin JACKSON A micrscopic examination will be performed if indicated. Normal [facility] Comment on above: Performed By: #### RONI COSTARO #### [facility] [address] [place] [address] Dr. Erin Martinez Glucose Ql (U) Negative Normal NEGATIVE [facility] Comment on above: Performed By: #### RONI COSTARO #### [facility] [address] [place] [address] Dr. Erin Martinez Hemoglobin Ql (U) SMALL Abnormal NEGATIVE [facility] Comment on above: Performed By: #### RONI COSTARO #### [facility] [address] [place] [address] Dr. Erin Martinez Ketones Ql (U) Negative Normal NEGATIVE [facility] Comment on above: Performed By: #### Kye SCHULTZ UMICRO #### [facility] [address] [place] [address] Dr. Erin Martinez LEUKOCYTES Negative Normal NEGATIVE [facility] Comment on above: Performed By: #### Kye SCHULTZ, UMICRO #### [facility] [address] [place] [address] Dr. Erin Martinez Nitrite Ql (U) Negative Normal NEGATIVE [facility] Comment on above: Performed By: #### Kye SCHULTZ UMICRO #### [facility] [address] [place] [address] Dr. Erin Martinez pH (U) 6.5 [pH] Normal 5-9 [facility] Comment on above: Performed By: #### Kye SCHULTZ UMICRO #### [facility] [address] [place] [address] Dr. Erin Martinez SPEC GRAVITY 1.015 Normal 1.005-<=1.025 [facility] Comment on above: Performed By: #### Kye SCHULTZ UMICRO #### [facility] [address] [place] [address] Dr. Erin Martinez UA PROTEIN Negative Normal NEGATIVE/ TRACE [facility] Comment on above: Performed By: #### Kye SCHULTZ UMICRO #### [facility] [address] [place] [address] Dr. Erin Martinez UR MICRO IND INDICATED Normal [facility] Comment on above: Performed By: #### Kye SCHULTZ, UMICRO #### [facility] [address] [place] [address] Dr. Erin Martinez Urobilinogen Qn (U) 0.2 {Darcie'U}/dL Normal 0.2 - 1. 0 [facility] Comment on above: Performed By: #### Kye SCHULTZ, UMICRO #### [facility] [address] [place] [address] Dr. Erin Martinez LIPASEon 02-02-2021 Lipase [Catalytic activity/Vol] 94.0 U/L Normal 23.0-300.0 [facility] Comment on above: Performed By: #### L IPA #### [facility] [address] [place] [address] Dr. Erin Martinez URINE MICROSCOPIC ONLYon BACTERIA NONE SEEN Normal NONE SEEN [facility] Comment on above: Performed By: #### E RUR, UMICRO #### [facility] [address] [place] [address] Dr. Erin Martinez Bacteria identified Cx Nom (U) NOT INDICATED Normal [facility] Comment on above: Performed By: #### E RUR, UMICRO #### [facility] [address] [place] [address] Dr. Erin Martinez CAST NONE SEEN Normal NONE SEEN [facility] Comment on above: Performed By: #### E RUR, UMICRO #### [facility] [address] [place] [address] Dr. Erin Martinez Crystals LM Nom (Urine sed) NONE SEEN Normal NONE SEEN [facility] Comment on above: Performed By: #### E RUR, UMICRO #### [facility] [address] [place] [address] Dr. Erin Martinez Epithelial cells LM Ql (Urine sed) RARE Normal NONE SEEN /RARE [facility] Comment on above: Performed By: #### E RUR, UMICRO #### [facility] [address] [place] [address] Dr. Erin Martinez MUCOUS NONE SEEN Normal NONE SEEN [facility] Comment on above: Performed By: #### E RUR, UMICRO #### [facility] [address] [place] [address] Dr. rEin Martinez RBC 0-2 Normal 0-2 [facility] Comment on above: Performed By: #### E RUR, UMICRO #### [facility] [address] [place] [address] Dr. Erin Martinez WBC NONE SEEN Normal NONE SEEN [facility] Comment on above: Performed By: #### E RUR, UMICRO #### [facility] [address] [address] [address] Erin Martinez CBC AUTO DIFFon 12-06-2020 BASO # 0.1 103/ul Normal 0.0-0.1 [facility] Comment on above: Performed By: #### C BC #### [facility] [address] [address] [address] Erin Martinez Basophils/100 WBC (Bld) 0.6 % Normal 0.2-2.0 [facility] Comment on above: Performed By: #### C BC #### [facility] [address] [address] [address] Erin Martinez EO # 0.1 103/ul Normal 0.0-0.7 [facility] Comment on above: Performed By: #### C BC #### [facility] [address] [place] [address] Dr. Erin Martinez Eosinophils/100 WBC (Bld) 1.0 % Normal 0.9-7.0 [facility] Comment on above: Performed By: #### C BC #### [facility] [address] [place] [address] Dr. Erin Martinez Erythrocyte distribution width (RBC) [Ratio] 12.9 % Normal 11.0-15.0 [facility] Comment on above: Performed By: #### C BC #### [facility] [address] [place] [address] Dr. Erin Martinez Hematocrit (Bld) [Volume fraction] 36.6 % Normal 36.0-48.0 [facility] Comment on above: Performed By: #### C BC #### [facility] [address] [place] [address] Dr. Erin Martinez Hemoglobin (Bld) [Mass/Vol] 12.3 g/dL Normal 12.0-16.0 [facility] Comment on above: Performed By: #### C BC #### [facility] [address] [place] [address] Dr. Erin Martinez IG # 0.09 10e3/ul Critically high 0.00-0.03 [facility] Comment on above: Performed By: #### C BC #### [facility] [address] [place] [address] Dr. Erin Martinez IG % 1.1 % Critically high 0.0-0.5 [facility] Comment on above: Performed By: #### C BC #### [facility] [address] [place] [address] Dr. Erin Martinez LYMPH # 1.1 103/ul Critically low 1.2-3.8 [facility] Comment on above: Performed By: #### C BC #### [facility] [address] [place] [address] Dr. Erin Martinez Lymphocytes/100 WBC (Bld) 13.9 % Critically low 20.5-60.0 [facility] Comment on above: Performed By: #### C BC #### [facility] [address] [place] [address] Dr. Erin Martinez MANUAL DIFF REQ NO Normal [facility] Comment on above: Performed By: #### C BC #### [facility] [address] [place] [address] Dr. Erin Martinez MCH (RBC) [Entitic mass] 33.2 pg Normal 26.7-34.0 [facility] Comment on above: Performed By: #### C BC #### [facility] [address] [place] [address] Dr. Erin Martinez MCHC (RBC) [Mass/Vol] 33.6 g/dL Normal 29.9-35.2 [facility] Comment on above: Performed By: #### C BC #### [facility] [address] [place] [address] Dr. Erin Martinez MCV (RBC) [Entitic vol] 98.9 fL Normal 81.0-99.0 [facility] Comment on above: Performed By: #### C BC #### [facility] [address] [place] [address] Dr. Erin Martinez MONO # 0.6 103/ul Normal 0.3-0.8 [facility] Comment on above: Performed By: #### C BC #### [facility] [address] [address] [address] Erin Martinez Monocytes/100 WBC (Bld) 7.4 % Normal 1.7-12.0 [facility] Comment on above: Performed By: #### C BC #### [facility] [address] [place] [address] Dr. Erin Martinez NEUT # 6.2 103/ul Normal 1.4-6.5 [facility] Comment on above: Performed By: #### C BC #### [facility] [address] [address] [address] Erin Martinez Neutrophils/100 WBC (Bld) 76.0 % Critically high 43.0-75.0 [facility] Comment on above: Performed By: #### C BC #### [facility] [address] [place] [address] Dr. Erin Martinez Platelet mean volume (Bld) [Entitic vol] 9.9 fL Normal 9.5-13.5 [facility] Comment on above: Performed By: #### C BC #### [facility] [address] [place] [address] Dr. Erin Martinez PLT 113 103/ul Critically low 150-450 [facility] Comment on above: Result Comment: NO P LATELET CLUMPING SEEN Performed By: #### C BC #### [facility] [address] [place] [address] Dr. Erin Martinez RBC 3.70 106/ul Critically low 4.20-5.40 [facility] Comment on above: Performed By: #### C BC #### [facility] [address] [place] [address] Dr. Erin Martinez WBC 8.2 103/ul Normal 4.0-11.0 [facility] Comment on above: Performed By: #### C BC #### [facility] [address] [place] [address] Dr. Erin Martinez ASYMPTOMATIC COVID-19 ANTIGE Non 12-05-2020 EUA Statement SEE BELOW Normal [facility] Comment on above: Result Comment: [...] sooner. Performed By: #### C BC #### [facility] [address] [place] [address] Dr. Erin Martinez SARS-CoV-2 (COVID-19) RNA MARLA+probe Ql (Unsp spec) Negative Normal NEGATIVE [facility] Comment on above: Result Comment: Nega tive results are presumptive. They do not preclude infection and should not be used as the sole basis for treatment decisions. Additional confirmatory testing by a molecular method should be considered. Performed By: #### C BC #### [facility] [address] [place] [address] Dr. Erin Martinez CBC AUTO DIFFon 12-05-2020 BASO # 0.1 103/ul Normal 0.0-0.1 [facility] Comment on above: Performed By: #### C BC #### [facility] [address] [place] [address] Dr. Erin Martinez Basophils/100 WBC (Bld) 1.1 % Normal 0.2-2.0 [facility] Comment on above: Performed By: #### C BC #### [facility] [address] [place] [address] Dr. Erin Martinez EO # 0.1 103/ul Normal 0.0-0.7 [facility] Comment on above: Performed By: #### C BC #### [facility] [address] [place] [address] Dr. Erin Martinez Eosinophils/100 WBC (Bld) 1.0 % Normal 0.9-7.0 [facility] Comment on above: Performed By: #### C BC #### [facility] [address] [place] [address] Dr. Erin Martinez Erythrocyte distribution width (RBC) [Ratio] 13.0 % Normal 11.0-15.0 [facility] Comment on above: Performed By: #### C BC #### [facility] [address] [place] [address] Dr. Erin Martinez Hematocrit (Bld) [Volume fraction] 38.5 % Normal 36.0-48.0 [facility] Comment on above: Performed By: #### C BC #### [facility] [address] [place] [address] Dr. Erin Martinez Hemoglobin (Bld) [Mass/Vol] 12.9 g/dL Normal 12.0-16.0 [facility] Comment on above: Performed By: #### C BC #### [facility] [address] [place] [address] Dr. Erin Martinez IG # 0.13 10e3/ul Critically high 0.00-0.03 [facility] Comment on above: Performed By: #### C BC #### [facility] [address] [place] [address] Dr. Erin Martinez IG % 1.8 % Critically high 0.0-0.5 [facility] Comment on above: Performed By: #### C BC #### [facility] [address] [place] [address] Dr. Erin Martinez LYMPH # 1.6 103/ul Normal 1.2-3.8 [facility] Comment on above: Performed By: #### C BC #### [facility] [address] [place] [address] Dr. Erin Martinez Lymphocytes/100 WBC (Bld) 22.5 % Normal 20.5-60.0 [facility] Comment on above: Performed By: #### C BC #### [facility] [address] [place] [address] Dr. Erin Martinez MANUAL DIFF REQ NO Normal [facility] Comment on above: Performed By: #### C BC #### [facility] [address] [place] [address] Dr. Erin Martinez MCH (RBC) [Entitic mass] 33.0 pg Normal 26.7-34.0 [facility] Comment on above: Performed By: #### C BC #### [facility] [address] [place] [address] Dr. Erin Martinez MCHC (RBC) [Mass/Vol] 33.5 g/dL Normal 29.9-35.2 [facility] Comment on above: Performed By: #### C BC #### [facility] [address] [place] [address] Dr. Erin Martinez MCV (RBC) [Entitic vol] 98.5 fL Normal 81.0-99.0 [facility] Comment on above: Performed By: #### C BC #### [facility] [address] [place] [address] Dr. Erin Martinez MONO # 0.5 103/ul Normal 0.3-0.8 [facility] Comment on above: Performed By: #### C BC #### [facility] [address] [place] [address] Dr. Erin Martinez Monocytes/100 WBC (Bld) 6.6 % Normal 1.7-12.0 [facility] Comment on above: Performed By: #### C BC #### [facility] [address] [place] [address] Dr. Erin Martinez NEUT # 4.9 103/ul Normal 1.4-6.5 [facility] Comment on above: Performed By: #### C BC #### [facility] [address] [place] [address] Dr. Erin Martinez Neutrophils/100 WBC (Bld) 67.0 % Normal 43.0-75.0 [facility] Comment on above: Performed By: #### C BC #### [facility] [address] [place] [address] Dr. Erin Martinez Platelet mean volume (Bld) [Entitic vol] 10.7 fL Normal 9.5-13.5 [facility] Comment on above: Performed By: #### C BC #### [facility] [address] [address] [address] Erin Martinez PLT 125 103/ul Critically low 150-450 [facility] Comment on above: Result Comment: smea r reviewed, platelet count confirmed Performed By: #### C BC #### [facility] [address] [address] [address] Erin Martinez RBC 3.91 106/ul Critically low 4.20-5.40 [facility] Comment on above: Performed By: #### C BC #### [facility] [address] [address] [address] Erin Martinez WBC 7.3 103/ul Normal 4.0-11.0 [facility] Comment on above: Performed By: #### C BC #### [facility] [address] [place] [address] Dr. Erin Martinez DRUG SCREEN RAPID (URINE)on 12-05-2020 AMP Negative Normal NEGATIVE [facility] Comment on above: Performed By: #### D RUGRPD #### [facility] [address] [address] [address] Erin Martinez BAR Negative Normal NEGATIVE [facility] Comment on above: Performed By: #### D RUGRPD #### [facility] [address] [place] [address] Dr. Erin Martinez BUP Negative Normal NEGATIVE [facility] Comment on above: Performed By: #### D RUGRPD #### [facility] [address] [address] [address] Erin Martinez BZO Negative Normal NEGATIVE [facility] Comment on above: Performed By: #### D RUGRPD #### [facility] [address] [address] [address] Erin Martinez HIRAL Negative Normal NEGATIVE [facility] Comment on above: Performed By: #### D RUGRPD #### [facility] [address] [place] [address] Dr. Erin Martinez CUT-OFFS SEE BELOW Normal [facility] Comment on above: Result Comment: AMP (Amphetamine): 500ng/mL, BAR (Barbituates): 200 ng/mL, BZO (Benzodiazepines): 150 ng/mL, BUP (Buprenorphine): 10 ng/mL, HIRAL (Cocaine): 150 ng/mL, mAMP (Methamphetamine): 500 ng/mL, MTD (Methadone): 200 ng/mL, OPI (Opiates): 100 ng/mL, OXY (Oxycodone): 100 ng/mL, PCP (Phencyclidine): 25 ng/mL, PPX (Propoxyphene): 300 ng/mL, THC (Cannabinoids): 50 ng/mL, TCA (Trycyclic Antidepressants): 300 ng/mL Performed By: #### D RUGRPD #### [facility] [address] [place] [address] Dr. Erin Martinez DRUG CUT HEADER DRUG CLASS TEST SYSTEM CUT-OFF CONCENTRATIONS ARE FOLLOWS: Normal [facility] Comment on above: Performed By: #### D RUGRPD #### [facility] [address] [place] [address] Dr. Erin Martinez mAMP Negative Normal NEGATIVE [facility] Comment on above: Performed By: #### D RUGRPD #### [facility] [address] [place] [address] Dr. Erin Martinez MTD Negative Normal NEGATIVE [facility] Comment on above: Performed By: #### D RUGRPD #### [facility] [address] [place] [address] Dr. Erin Martinez OPI Negative Normal NEGATIVE [facility] Comment on above: Performed By: #### D RUGRPD #### [facility] [address] [place] [address] Dr. Erin Martinez OXY Negative Normal NEGATIVE [facility] Comment on above: Performed By: #### D RUGRPD #### [facility] [address] [place] [address] Dr. Erin Martinez PCP Negative Normal NEGATIVE [facility] Comment on above: Performed By: #### D RUGRPD #### [facility] [address] [place] [address] Dr. Erin Martinez PPX Negative Normal NEGATIVE [facility] Comment on above: Performed By: #### D RUGRPD #### [facility] [address] [address] [address] Erin Martinez TCA Negative Normal NEGATIVE [facility] Comment on above: Performed By: #### D RUGRPD #### [facility] [address] [address] [address] Erin Martinez THC Negative Normal NEGATIVE [facility] Comment on above: Performed By: #### D RUGRPD #### [facility] [address] [address] [address] Erin Martinez TYPE AND SCREENon 12-05-2020 TYPE AND SCREEN Negative Normal [facility] Comment on above: Performed By: #### C BC #### [facility] [address] [address] [address] Erin Martinez POINT OF CARE GLUCOSEon 11-18 Glucose [Mass/Vol] 122 mg/dL Critically high 74-106 [facility] Comment on above: Performed By: #### P OCGLUC #### [facility] [address] [address] [address] Erin Martinez US PREG BIOPHY W [...] by: CHELO DUBOSE Date: 2020-12-04 16:40 Normal [facility] US PREG BIOPHY W NON STRESSo n [...] SHAJI DO Date: 2020-11-20 16:04 Normal [facility] CHLAMYDIA/GONOCOCCUS MARLA (SW AB/URINE/PAPon 11-14-2020 Chlamydia trachomatis, MRALA Negative Normal Negative [facility] Comment on above: Performed By: #### C BC #### [facility] [address] [address] [address] Erin Martinez Neisseria gonorrhoeae, MARLA Negative Normal Negative [facility] Comment on above: Performed By: #### C BC #### [facility] [address] [address] [address] Erin Martinez GROUP B STREP CULTUREon 10-19 S. agalactiae Ag Ql (Unsp spec) Culture Observations: NEGATIVE FOR GROUP B STREPTOCOCCUS. Normal [facility] Comment on above: Performed By: #### C BC #### [facility] [address] [place] [address] Dr. Erin Martinez US PREG GROWTHon 10-20-2020 US PREG GROWTH EXAMINATION: [...] CHELO DUBOSE Date: 2020-10-20 13:39 Normal [facility] GTT 3 HR PREGon 09-25-2020 Glucose [Mass/Vol] 86 mg/dL Normal 74-106 [facility] Comment on above: Performed By: #### P OCGLUC #### [facility] [address] [place] [address] Dr. Erin Martinez Glucose [Mass/Vol] 93 mg/dL Normal [facility] Comment on above: Performed By: #### P OCGLUC #### [facility] [address] [place] [address] Dr. Erin Martinez Glucose [Mass/Vol] 78 mg/dL Normal [facility] Comment on above: Performed By: #### P OCGLUC #### [facility] [address] [place] [address] Dr. Erin Martinez Glucose [Mass/Vol] 79 mg/dL Normal [facility] Comment on above: Performed By: #### P OCGLUC #### [facility] [address] [place] [address] Dr. Erin Martinez CBC AUTO DIFFon 09-22-2020 BASO # 0.1 103/ul Normal 0.0-0.1 [facility] Comment on above: Performed By: #### C BC #### [facility] [address] [place] [address] Jonathan Ana Basophils/100 WBC (Bld) 0.7 % Normal 0.2-2.0 [facility] Comment on above: Performed By: #### C BC #### [facility] [address] [place] [address] Jonathan Ana EO # 0.1 103/ul Normal 0.0-0.7 [facility] Comment on above: Performed By: #### C BC #### [facility] [address] [place] [address] Jonathan Ana Eosinophils/100 WBC (Bld) 0.7 % Critically low 0.9-7.0 [facility] Comment on above: Performed By: #### C BC #### [facility] [address] [place] [address] Jonathancurtis Perez Erythrocyte distribution width (RBC) [Ratio] 12.7 % Normal 11.0-15.0 [facility] Comment on above: Performed By: #### C BC #### [facility] [address] [place] [address] Jonathan Ana Hematocrit (Bld) [Volume fraction] 36.1 % Normal 36.0-48.0 [facility] Comment on above: Performed By: #### C BC #### [facility] [address] [place] [address] Jonathan Ana Hemoglobin (Bld) [Mass/Vol] 12.2 g/dL Normal 12.0-16.0 [facility] Comment on above: Performed By: #### C BC #### [facility] [address] [place] [address] Jonathan Ana IG # 0.08 10e3/ul Critically high 0.00-0.03 [facility] Comment on above: Performed By: #### C BC #### [facility] [address] [place] [address] Jonathan Ana IG % 1.2 % Critically high 0.0-0.5 [facility] Comment on above: Performed By: #### C BC #### [facility] [address] [place] [address] Jonathan Ana LYMPH # 1.3 103/ul Normal 1.2-3.8 [facility] Comment on above: Performed By: #### C BC #### [facility] [address] [place], [place] [id number] Jonathan Perez Lymphocytes/100 WBC (Bld) 18.6 % Critically low 20.5-60.0 [facility] Comment on above: Performed By: #### C BC #### [facility] [address] [place] [address] Jonathan Perez MANUAL DIFF REQ NO Normal [facility] Comment on above: Performed By: #### C BC #### [facility] [address] [place], [place] [address] Jonathancurtis Perez MCH (RBC) [Entitic mass] 32.8 pg Normal 26.7-34.0 [facility] Comment on above: Performed By: #### C BC #### [facility] [address] [place] [id number] Jonathancurtis Perez MCHC (RBC) [Mass/Vol] 33.8 g/dL Normal 29.9-35.2 [facility] Comment on above: Performed By: #### C BC #### [facility] [address] [place], [place] [id number] Jonathancurtis Perez MCV (RBC) [Entitic vol] 97.0 fL Normal 81.0-99.0 [facility] Comment on above: Performed By: #### C BC #### [facility] [address] [place] [address] Jonathancurtis Solsien MONO # 0.4 103/ul Normal 0.3-0.8 [facility] Comment on above: Performed By: #### C BC #### [facility] [address] [place], [place] [id number] Jonathan Ana Monocytes/100 WBC (Bld) 5.5 % Normal 1.7-12.0 [facility] Comment on above: Performed By: #### C BC #### [facility] [address] [place], [place] [id number] Jonathancurtis Solisen NEUT # 4.9 103/ul Normal 1.4-6.5 [facility] Comment on above: Performed By: #### C BC #### [facility] [address] [place], [place] [id number] Jonathan Ana Neutrophils/100 WBC (Bld) 73.3 % Normal 43.0-75.0 [facility] Comment on above: Performed By: #### C BC #### [facility] [address] [place], [place] [id number] Jonathan Ana Platelet mean volume (Bld) [Entitic vol] 9.8 fL Normal 9.5-13.5 [facility] Comment on above: Performed By: #### C BC #### [facility] [address] [place], [place] [address] Jonathan Perez PLT 156 103/ul Normal 150-450 [facility] Comment on above: Performed By: #### C BC #### [facility] [address] [place], [place] [address] Jonathan Perez RBC 3.72 106/ul Critically low 4.20-5.40 [facility] Comment on above: Performed By: #### C BC #### [facility] [address] [place], [place] [address] Jonathan Perez WBC 6.7 103/ul Normal 4.0-11.0 [facility] Comment on above: Performed By: #### C BC #### [facility] [address] [place], [place] [address] Jonathan Perez GLUCOSE - 1HRon 09-22-2020 Glucose [Mass/Vol] 135 mg/dL Critically high 74-106 [facility] Comment on above: Performed By: #### G LU1HR #### [facility] [address] [place], [place] [address] Jonathan Perez US PREG ANATOMY SINGLEon US [...] by: CHELO DUBOSE Date: 2020-07-29 09:02 Normal [facility] Vital Signs Date Time Vital Sign Value Performing Clinician Facility 02-29-2024 10:51-0500 Body mass index (BMI) [Ratio] 21.2 kg/m2 [employer] Work Phone: [facility] [employer] 02-29-2024 10:51-0500 Body weight 57.79 kg [employer] Work Phone: [facility] [employer] 02-29-2024 10:51-0500 Diastolic blood pressure 58 mm[Hg] [employer] Work Phone: [facility] [employer] 02-29-2024 10:51-0500 Systolic blood pressure 98 mm[Hg] [employer] Work Phone: [facility] [employer] 09-23-2022 10:00-0400 Body height 165.1 cm Ghislaine Chauhan Other [employer] Other 09-23-2022 10:00-0400 Body mass index (BMI) [Ratio] 21.3 kg/m2 Ghislaine Chauhan Other [employer] Other 09-23-2022 10:00-0400 Body weight 58.06 kg Ghislaine Chauhan Other [employer] Other 09-23-2022 10:00-0400 Diastolic blood pressure 68 mm[Hg] Ghislaine Chauhan Other [employer] Other 09-23-2022 10:00-0400 Systolic blood pressure 98 mm[Hg] Ghislaine Chauhan Other [employer] Other 06-20-2018 09:54-0400 BMI (Body Mass Index) 20.72 kg/m2 [facility] 06-20-2018 09:54-0400 BP Diastolic 65 mm[Hg] Paulina [id number] 06-20-2018 09:54-0400 BP Systolic 99 mm[Hg] [facility] 06-20-2018 09:54-0400 Height 165.1 cm Paulina [facility] 06-20-2018 09:54-0400 Pulse (Heart Rate) 77 /min [facility] 06-20-2018 09:54-0400 Weight 56.47 [facility] Encounters Encounter Date Encounter Type Care Provider Facility Start: 02-29-2024 End: 02-29-2024 [employer]amboo flow[employer] Nii Evita DO Work Phone: [facility] Start: 02-29-2024 End: 02-29-2024 [employer]amboo [employer] Nii Evita DO Work Phone: [facility] Start: 02-29-2024 End: 02-29-2024 Patient encounter procedure Nii Evita DO Work Phone: [facility] Start: 02-29-2024 End: 02-29-2024 Periodic preventive med est patient 40-64yrs Nii Evita DO Work Phone: [facility] Comment on above: Well woman exam with routine gynecological exam; Encounter for screening mammogram for malignant neoplasm of breast Start: 02-29-2024 End: 02-29-2024 ambulatory NII EVITA Not Available Start: 04-06-2023 End: 04-06-2023 ambulatory Ghislaine Chauhan Other [employer] Other Start: 04-06-2023 Telephone encounter Ghislaine Chauhan [facility] Start: 09-23-2022 End: 09-23-2022 ambulatory Ghislaine Chauhan Other [employer] Other Start: 09-23-2022 Encounter for genera l adult medical examination without abnormal findings Ghislaine Chauhan [facility] Start: 09-23-2022 Initial preventive medicine new pt age 18-39yrs Ghislaine Tien [facility] Start: 06-10-2021 End: 06-10-[address] NII [...] [place] y:H1 Start: 06-20-2018 Patient encounter procedure [facility] Start: 06-20-2018 End: 06-20-2018 Patient encounter procedure Paulina Chadwicksol Work Phone: [facility] Comment on above: Breast atrophy (Prim cali Dx) Start: 05-25-2017 End: 05-25-2017 Patient encounter procedure PAULINA [facility] Start: 04-01-2016 Encounter for genera l adult medical examination without abnormal findings Ghislaine Chauhan Other [employer] Other Start: 03-24-2016 Pre-procedure evalua tion check Ghislaine Chauhan Other [employer] Other Procedures Date Procedure Procedure Detail Performing [...] Treatment Date Care Activity Detail Author Start: 12-28-2027 Screening for malignant neoplasm of cervix [facility] Start: 03-04-2025 End: 03-04-2025 Patient encounter procedure 03/04/2025 8:30 AM EST Office Visit [facility] [address] [facility] [facility] [place] [address] Nii Jama DO [address] [place] [address] [facility] Start: 02-29-2024 End: 05-01-2025 MG Breast - bilateral Screening Bilateral screening mammogram Imaging Routine Well woman exam with routine gynecological exam Encounter for screening mammogram for malignant neoplasm of breast Expected: 02/29/2024 (Approximate), Expires: 05/01/2025 [facility] Work Phone: Comment on above: Expected: 02/29/2024 (Approximate), Expires: 05/01/2025 Start: 02-29-2024 End: 02-29-2024 Patient encounter procedure 02/29/2024 10:30 AM EST Office Visit [facility] [address] [place] [address] Nii Jama, DO [address] [facility] [address] [place], [place] [id number] Arrived [facility] Comment on above: Arrived Start: 11-19-2023 Influenza vaccination Influenza Vacc ine (#1) [facility] Start: 2023 Screening for malignant neoplasm of breast Mammogram [facility] Start: 11-18-2018 Influenza vaccination INFLUENZ A VACCINE (Season Ended) [facility] Start: 10-28-2004 Screening for malignant neoplasm of cervix [facility] Start: 10-28-2002 Third diphtheria, tetanus and acellular pertussis (DTaP) vaccination TDAP (ADULT) [facility] Start: 10-28-2001 Tetanus vaccination [facility] Start: 10-28-1996 HIV screening HIV SCREENING DISCUSSI ON [facility] THIN PREP TIS PAP AN D HR HPV DNA THIN PREP TIS PAP AND HR HPV DNA Pathology and Cytology Routine Well woman exam with routine gynecological exam Ordered: 02/29/2024 [facility] Comment on above: Ordered: 02/29/2024 Immunizations Immunization Date Immunization Notes Care Provider Fa cility 05-25-2023 influenza virus vaccine, unspecified formulation Nii Jama DO Work Phone: [facility] 01-10-2020 influenza, seasonal, injectable Ghislaine Chauhan Other [employer] Other Payers Date Payer Category [facility] [id number] 2022 [employer] [id number] 2019 Unknown [id number] 2018 Unknown [id number] 2018 Unknown xxxxxxxxx [id number] 2018 Unknown [id number] 1983 Unknown [id number] 2.16.840.1.908110.3.579.2. 983 1983 Unknown [id number] 2.16840.1.784447.3.579.2. 593 1983 Unknown [id number] 2.16840.1.963030.3.579.2. 593 1983 Unknown [id number] 2.16.840.1.131112.3.579.2. 593 1983 Unknown [id number] 2.16.840.1.531192.3.579.2. 593 1983 Unknown [id number] 2.16.840.1.957797.3.579.2. 593 1983 Unknown [id number] 2.16.840.1.209197.3.579.2. 593 1983 Unknown [id number] 2.16.840.1.124865.3.579.2. 593 1983 Unknown [id number] 2.16.840.1.333751.3.579.2. 593 1983 Unknown [id number] 2.16.840.1.206228.3.579.2. 593 1983 Unknown [id number] 2.16.840.1.991078.3.579.2. 593 1983 Unknown [id number] 2.16.840.1.912695.3.579.2. 593 1983 Unknown [id number] 2.16.840.1.330413.3.579.2. 593 1983 Unknown [id number] 2.16.840.1.949021.3.579.2. 593 1983 Unknown [id number] 2.16.840.1.363232.3.579.2. 593 1983 Unknown [id number] 2.16.840.1.446741.3.579.2. 1259 Social History Date Type Detail Facility Start: 06-20-2018 End: 12-10-2022 Tobacco smoking status [facility] Never smoker [facility] Start: 1985 Sex Assigned At Not on file [facility] Start: 12-10-2022 Sex Assigned At [facility] [employer] Other Start: 12-10-2022 Alcoholic beverage intake Current drinker of alcohol (finding) [facility] Start: 12-10-2022 History of Social function [facility] Start: 12-10-2022 Alcohol Comment Caffeine:1-2 c ups per day [facility] History of Present illness Narrative 02-29-2024 Ana Littlejohn LPN - 02/29/2024 10:30 AM EST Note Date & Type Note Facility 02-29-2024 History of Presen t illness Narrative Reason for Appointment: Patient ID: Sangeeta Tolbert is a 38 y.o. female who presents for Gynecologic Exam Patient presents today for Annual Exam. MEDICATIONS Current Outpatient Medications Medication Instructions ARIPiprazole (ABILIFY) 2 mg, Daily buPROPion XL (WELLBUTRIN XL) 300 mg, Oral, Every morning Levonorgestrel (MIRENA, 52 MG, IU) Intrauterine Rexulti 0.5 MG tablet 1 tablet, Oral, Daily ALLERGIES No Known Allergies PROBLEMS Active Ambulatory Problems Diagnosis Date Noted Well woman exam with routine gynecological exam 02/29/2024 Encounter for screening mammogram for malignant neoplasm of breast 02/29/2024 Resolved Ambulatory Problems Diagnosis Date Noted No Resolved Ambulatory Problems No Additional Past Medical History HISTORY PAST MEDICAL HISTORY SOCIAL HISTORY No past medical history on file. Social History Tobacco Use Smoking status: Never Smokeless tobacco: Not on file Substance Use Topics Alcohol use: Yes Comment: Caffeine:1-2 cups per day Drug use: Never FAMILY HISTORY Family History Problem Relation Name Age of Onset Hypertension Father SURGICAL HISTORY No past surgical history on file. REVIEW OF SYSTEMS Review of Systems: Review of Systems Constitutional: Negative. HENT: Negative. Eyes: Negative. Respiratory: Negative. Cardiovascular: Negative. Gastrointestinal: Negative. Genitourinary: Negative. Musculoskeletal: Negative. Skin: Negative. Neurological: Negative. All other systems reviewed and are negative. Hematological: Negative. Endocrine: Negative. Allergic/Immunologic: Negative. OBJECTIVE Objective: Physical Exam Constitutional: Appearance: Normal appearance. She is well-developed. Genitourinary: Vulva normal. Breasts: Breasts are soft. Right: Normal. Left: Normal. Cardiovascular: Rate and Rhythm: Normal rate and regular rhythm. Pulmonary: Effort: Pulmonary effort is normal. Breath sounds: Normal breath sounds. Abdominal: General: Bowel sounds are normal. There is no distension. Palpations: Abdomen is soft. Tenderness: There is no abdominal tenderness. There is no guarding or rebound. Musculoskeletal: General: No swelling. Normal range of motion. Right lower leg: No edema. Left lower leg: No edema. Neurological: Mental Status: She is alert and oriented to person, place, and time. Skin: General: Skin is warm and dry. Psychiatric: Mood and Affect: Mood normal. Behavior: Behavior normal. Vitals and nursing note reviewed. Exam conducted with a dredge or barge shore hand present. Vitals: Estimated body mass index is 21.2 kg/m as calculated from the following: Height as of 06/27/17: 5' 5 . Weight as of this encounter: 127 lb 6.4 oz. BP: 98/58 No LMP recorded (lmp unknown). ASSESSMENT & PLAN ICD-10-CM 1. Well woman exam with routine gynecological exam Z01.419 Bilateral screening mammogram THIN PREP TIS PAP AND HR HPV DNA Bilateral screening mammogram 2. Encounter for screening mammogram for malignant neoplasm of breast Z12.31 Bilateral screening mammogram Bilateral screening mammogram Annual: Patient presents today for an annual exam. Patient states she is doing well and has no complaints. Pap was obtained without difficulty and patient given mammogram order to have scheduled/obtained. Orders Placed This Encounter Procedures Bilateral screening mammogram Follow Up: Patient is to return in one year for annual unless needed otherwise. Documented by Ana Littlejohn LPN on behalf of: Nii Jama DO documented in this encounter [facility] Evaluation note 09-23-2022 Note Date & Type [...] patient is sent home pleased, without concerns. [facility] Other Evaluation note Note Date & Type Note Facility Evaluation note No Information [facility] Other Evaluation note Note Date & Type Note Facility Evaluation note Diagnosis Well woman exam with routine gynecological exam Routine gynecological examination Encounter for screening mammogram for malignant neoplasm of breast documented in this encounter [facility] History general Narrative - Reported Note Date & Type Note Facility History general Narrative - Reported Type Medical History depression Surgical History Tonsillectomy Surgical History breast augmentation Hospitalization History See above Hospitalization History Childbirth x3 [facility] Other Summary Purpose Family History No Family [...] file Gets together: Not on file Attends bahai service: Not on file Active member of [...] section and content) DATE CREATED AUTHOR 05/08/2018 [facility] DATE CREATED AUTHOR AUTHOR'S ORGANIZ ATION 06/22/2018 [facility] DATE CREATED AUTHOR AUTHOR'S ORGANIZ ATION 06/18/2021 [facility] DATE CREATED AUTHOR AUTHOR'S ORGANIZ ATION 03/03/2024 [facility] EP[facility] Reason for Visit (unrecogniz ed section and content) Reason Comments Cosmetic Pt had breast augmen tation in 2017. Pt is having rippling of implants bilaterally. States that she is working out more and not sure if it is due to this. Pt states that the skin is indented at times. Reason Comments Gynecologic Exam Care Teams (unrecognized sec tion and content) Foreclosure Home Inspector Relationship Specialty Start Date End Date Ghislaine Chauhan MD [address] [place] [address] PCP - General Family Medicine 12/08/22 Foreclosure Home Inspector Relationship Specialty Start Date End Date Ghislaine Chauhan MD [address] [place] [address] PCP - General Family Medicine 12/08/22 FOR RECORDS PERTAINING TO PATIENTS WHO ARE [...] BE BASED ON THE PRIMARY CLINICAL RECORDS. [employer] [facility]. provides no warranty or guarantee of the accuracy or completeness of information in this document.
== END 2024-03-07 10:26 | disposition home or self-care (01) ==
LOC: MAMMO 10:25
PROVIDERS: Visit Provider Obstetrics & Gynecology
DX: Z12.31 Encounter for screening mammogram for malignant neoplasm of breast (principal)
CPT/HCPCS: 77063; 77067

== ENCOUNTER 2025-03-04 12:44 | Outpatient (REF) | payer OTHER, SELFPAY ==
--- OUTSIDE RECORDS SUMMARY | 2025-03-04 08:30 | XMS_ITS | Encounter Summary ---
Author Organization [facility] Address [address] [place] [address] Care Team Providers Care Kettle Loader Name Role Phone Ghislaine Chauhan MD Primary Care Provider [phone] Reason for Visit * ReasonCommentsGynecologic Exam Encounter Details DateTypeDepartmentCare Team (Latest Contact Info)Injilatpirz69/16/2025 8:30 AM ESTOffice Visit [facility] [address] [place] [phone] Jose Jama, [address] [place] [address] Well woman exam with routine gynecological exam; Encounter for screening mammogram for malignant neoplasm of breast Social History Tobacco UseTypesPacks/DayYears UsedDateSmoking Tobacco: NeverSmokeless Tobacco: Never Tobacco Cessation:Counseling Given: Not Answered Alcohol UseStandard Drinks/WeekCommentsYes0 (1 standard drink = 0.6 oz pure alcohol)Caffeine:1-2 cups per dayCommentsUnknownSex and Gender InformationValueDate RecordedSex Assigned at BirthNot on fileLegal SexFemale 06/01/2022 8:14 PM EDTGender IdentityNot on fileSexual OrientationNot on file documented as of this encounter Last Filed Vital Signs Vital SignReadingTime TakenCommentsBlood Zhhczoir205/6003/04/2025 8:34 AM EST Pulse--Temperature--Respiratory Rate--Oxygen Saturation--Inhaled Oxygen Concentration--Ewioli85 kg (130 lb)03/04/2025 8:34 AM ESTHeight--Body Mass Index 21.6304 12:00 PM EDTdocumented in this encounter Progress Notes * Ana Littlejohn, BACK END ENGINEER - 03/04/2025 8:30 AM EST Reason for Appointment: Patient ID: Sangeeta Tolbert is a 39 y.o. female who presents for Gynecologic Exam [...] Tobacco Use Smoking status: Never Smokeless tobacco: Never Substance Use Topics Alcohol use: Yes Comment: Caffeine:1-2 cups per day Drug use: Never FAMILY HISTORY Family History Problem Relation Name Age of Onset Hypertension Father Dad Diabetes Father Dad Cancer Maternal Grandmother Grandma SURGICAL HISTORY No past surgical history on [...] nursing note reviewed. Exam conducted with a well digger present. Vitals: Estimated body mass index is 21.63 kg/m?? as calculated from the following: Height as of 18: 5' 5 . Weight as of this encounter: 130 lb. BP: 108/60 No LMP recorded. ASSESSMENT & PLAN ICD-10-CM 1. Well woman exam with routine gynecological exam Z01.419 THIN PREP TIS PAP AND HR HPV DNA 2. Encounter for screening mammogram for malignant neoplasm of breast Z12.31 Bilateral screening mammogram Bilateral screening mammogram Orders Placed This Encounter Procedures Bilateral screening mammogram Annual Wellness Exam: Patient presents today for routine annual exam. Patient states she has no current complaints. Patients vitals were reviewed and within normal limits. Growth and development is noted to be appropriate for age. Menstrual history is noted to be regular with no concerns reported. No mental health concerns was expressed. Pap Smear: Speculum was inserted into the vagina and pap was obtained without difficulty. HPV testing was performed per age guideline. Patient was advised that pap results could take anywhere from 7 to 10 days to receive and our office will reach out to the patient with those once we have them. Patient can also view results via [employer]. I reinforced importance of condom use for STI prevention. Patient declined cultures to be performed with today's visit. Breast Exam: Upon examination, clinical breast exam was noted to be normal and screening mammogram was ordered and given to patient to have obtained. Patient was counseled on breast self-awareness, including the importance of knowing what is normal for her own breasts and promptly reporting any changes such as new lumps, skin dimpling, nipple discharge, or pain. Screening mammogram was recommended annually. Discussed signs and symptoms of breast cancer and when to seek medical attention. Answered all patient questions. Contraceptive Counseling (if applicable): Patient is currently using IUD as a form of contraceptive. Follow Up: Patient is to return to our office in one year for annual exam unless needed otherwise. Documented by Ana Littlejohn LPN on behalf of: Jose Jama DO documented in this encounter Plan of Treatment DateTypeDepartmentCare Team (Latest Contact Info)Qskgepahnpo85/22/2026 8:30 AM ESTProcedure Visit [facility] [address] [place] [phone] Jose Jama DO [address] [place] [address] NameTypePriorityAssociated DiagnosesOrder ScheduleBilateral screening mammogram ImagingRoutine Encounter for screening mammogram for malignant neoplasm of breast Expected: 03/04/2025 (Approximate), Expires: 05/05/2026THIN PREP TIS PAP AND HR HPV DNAPathology and CytologyRoutine Well woman exam with routine gynecological exam Ordered: 03/04/2025documented as of this encounter Visit Diagnoses Diagnosis Well woman exam with routine gynecological exam Routine gynecological examination Encounter for screening mammogram for malignant neoplasm of breast documented in this encounter Care Teams Team MemberRelationshipSpecialtyStart DateEnd Date Ghislaine Chauhan MD [address] [facility] [place] [address] PCP - GeneralFamily Medicine12/08/22documented as of this encounter
--- OUTSIDE RECORDS SUMMARY | 2025-03-04 12:49 | XMS_ITS | Encounter Summary ---
Author Organization [facility] Address [address] [place] [address] [place] [address] Care Team Providers Care Campus Recruiting Coordinator Name Role Phone Ghislaine Chauhan MD Primary Care Provider [phone] Encounter Details DateTypeDepartmentCare Team (Latest Contact Info)Tngenbrjxel10/15/2025Travel Social History Tobacco UseTypesPacks/DayYears UsedDateSmoking Tobacco: NeverAlcohol UseStandard Drinks/WeekCommentsYes0 (1 standard drink = 0.6 oz pure alcohol)Caffeine:1-2 cups per dayCommentsUnknownSex and Gender InformationValueDate Recorded Sex Assigned at BirthNot on fileLegal LioKkpuih55/15/2023 8:14 PM EDTGender IdentityNot on fileSexual OrientationNot on filedocumented as of this encounter Plan of Treatment DateTypeDepartmentCare Team (Latest Contact Info)Uuhofkxigkr02/22/2026 8:30 AM ESTProcedure Visit [facility] [address] [place] [address] Jose Jama DO [address] [place] [address] documented as of this encounter Visit Diagnoses Not on filedocumented in this encounter Care Teams Team MemberRelationshipSpecialtyStart DateEnd Date Ghislaine Chauhan MD [address] [place] [address] PCP - GeneralFamily Medicine12/08/22documented as of this encounter
--- OUTSIDE RECORDS SUMMARY | 2025-03-04 12:49 | XMS_ITS | Clinical Summary ---
Author Organization [facility] Address [address] [place] [address] Care Team Providers Care Perianesthesia Nurse Name Role Phone Ghislaine Chauhan MD Primary Care Provider [phone] Allergies No known active allergies Medications MedicationSigDispense QuantityRefillsLast FilledStart DateEnd DateStatus Rexulti 0.5 MG tablet Take 1 tablet by mouth in the morning.10/25/2022ctive buPROPion XL (Wellbutrin XL) 300 MG 24 hr tablet Take 300 mg by mouth in the morning.11/16/2022ctive ARIPiprazole (Abilify) 2 MG tablet Take 2 mg by mouth Daily11/09/2023ctive Levonorgestrel (MIRENA, 52 MG, IU) by Intrauterine routeActive Active Problems ProblemNoted DateDiagnosed DateWell woman exam with routine gynecological exam 02/29/2024Encounter for screening mammogram for malignant neoplasm of breast 02/29/2024 Encounters DateTypeDepartmentCare NcemWtebtfyoslt49/16/2025 8:30 AM ESTOffice Visit [facility] [address] [facility] [place] [address] Jose Jama, Well woman exam with routine gynecological exam; Encounter for screening mammogram for malignant neoplasm of jucqzt6603/04/2025 Bamboo flowsheet [facility] [address] [place] [address] Jose Jama, 03/03/2025Travelfrom Last 3 Months Family History Medical HistoryRelationNameCommentsDiabetesFatherDadHypertensionFatherDadCancer Maternal GrandmotherGrandmaRelationNameStatusCommentsFatherDadMaternal GrandmotherGrandmaAlive Social History Tobacco UseTypesPacks/DayYears UsedDateSmoking Tobacco: NeverSmokeless Tobacco: Never Tobacco Cessation:Counseling Given: Not Answered Alcohol UseStandard Drinks/WeekCommentsYes0 (1 standard drink = 0.6 oz pure alcohol)Caffeine:1-2 cups per dayCommentsUnknownSex and Gender InformationValueDate RecordedSex Assigned at BirthNot on fileLegal SexFemale 06/01/2022 8:14 PM EDTGender IdentityNot on fileSexual OrientationNot on file Last Filed Vital Signs Vital SignReadingTime TakenCommentsBlood Iqzriarg638/6003/04/2025 8:34 AM EST Pulse--Temperature--Respiratory Rate--Oxygen Saturation--Inhaled Oxygen Concentration--Gokgii05 kg (130 lb)03/04/2025 8:34 AM UXPHnknfu190.1 cm (5' 5 ) 06/27/2017 12:00 PM EDTBody Mass Index21.63006/27/2017 12:00 PM EDT Plan of Treatment DateTypeDepartmentCare Team (Latest Contact Info)Dywszilwknk68/22/2026 8:30 AM ESTProcedure Visit [facility] [address] [address] Jose Jama DO [address] [place], [place] [address] Health MaintenanceDue DateLast DoneCommentsCOVID-19 Vaccine ( season) 508/, 10/16/2020Influenza Vaccine (#1)502/03/2024, 05/25/2023, 03/11/2021, Additional history jtdvvwRwefuuogt40/19/202512/, 3Cervical Cancer Btffoombz88/12/2029HPV/Aaqapj10/3Pap Smear/4Pneumococcal Vaccine: Pediatrics (0 to 5 Years) and At- Risk Patients (6 to 64 Years)Aged OutNo longer eligible based on patient's age to complete this topic Procedures Procedure NamePriorityDate/TimeAssociated DiagnosisCommentsMM TOMOSYNTHESIS SCREENING BI03/07/2024 1:22 PM EST PAP TTDYMGayovug03/12/2024 12:00 AM ESTTHINPREP PAP AND HPV MRNA E6/E7 W/RFL HPV 16,18/00Inqfhud37/10/2023 3:55 PM EDT Well woman exam with routine gynecological exam from Last 3 Months or Most Recently Relevant to Health Maintenance Results * MM TOMOSYNTHESIS SCREENING BI (03/07/2024 1:22 PM EST)Anatomical Region LateralityModalityOtherSpecimen (Source)Anatomical Location / Laterality Collection Method / VolumeCollection TimeReceived Time03/07/2024 1:22 PM EST Narrative 03/07/2024 1:23 PM EST [facility] ?[address] ? [place] [address] ? Mammography Report ? Signed ? Patient: SANGEETA TOLBERT ?MR#: [id number] ?? : 1985 ?Acct:[id number] ?? Age/Sex: 38 / F ?ADM Date: 03/07/24 ?? Loc: MAMMO ? Attending Dr: Jose Jama D.O. ? Ordering Physician: Jose Jama D.O. ?Results: ? Date of Service: 03/07/24 ?Follow Up: ? Procedure(s): MM tomosynthesis screening BI ?? Accession Number(s): [id number] ? cc: Jose Jama D.O.; Physician,Non-Staff Joseph ? Patient Name: ? SANGEETA TOLBERT ? MR#: [id number] ? : 1985 ? Exam Date: 03/07/2024 ?? Ordering Doctor: DR Jose Jama . ? RADIOLOGY REPORT ? PROCEDURE: ? MM TOMOSYNTHESIS SCREENING BI ? COMPARISON: ? MM TOMOSYNTHESIS DIAGNOSTIC BI, 02/17/2023. ? INDICATIONS: ? Screening ? Calculator Name ? NCI Breast Cancer Risk Assessment Tool ?? 5 Year Breast Cancer Risk ? 0.60% ?? Lifetime Breast Cancer Risk ? 10.20% ?? Personal Breast Cancer ?No ?? Personal Ovarian Cancer ? No ?? Treatments ? None ?? Family Cancers ? None ? LOCATION: ? [facility] ? BREAST COMPOSITION: ? The breasts are heterogeneously dense,which may ?? obscure small masses. ? FINDINGS: ? DIAGNOSTIC CATEGORY 2--BENIGN FINDING. NO CHANGE FROM COMPARISON. ? This exam includes additional mammographic views for implant evaluation and ?? shows no visible implant abnormality. ? RIGHT BREAST: ??No significant suspicious finding. ? LEFT BREAST: ??No significant suspicious finding. ? RECOMMENDATIONS: ? ROUTINE MAMMOGRAM AND CLINICAL EVALUATION IN 12 MONTHS. ? PLEASE NOTE: ??A NORMAL MAMMOGRAM DOES NOT EXCLUDE THE POSSIBILITY OF BREAST ?? CANCER. ??A CLINICALLY SUSPICIOUS PALPABLE LUMP SHOULD BE BIOPSIED. ? Dictated by: Yuri Albarado MD on 03/07/2024 at 13:21 ? Approved by: Yuri Albarado MD on 03/07/2024 at 13:22 ? Dictated By: ?Yuri Albarado M.D. ? Signed By: ?03/07/24 1323 ? DD/ 1322 ? TD/TT: ? Anatomic Pathology Manager: Procedure Note Radiology, Radiologist, MD - 03/07/2024 [place] [address] Mammography Report Signed Patient: SANGEETA TOLBERT MMR#: [id number] : 1985Acct:[id number] Age/Sex: 38 / FADM Date: 03/07/24 Loc: MAMMO Attending Dr: Jose Jama D.O. Ordering Physician: Jose Jama D.O.Results: Date of Service: 03/07/24Follow Up: Procedure(s): MM tomosynthesis screening BI Accession Number(s): [id number] cc: Jose Jama D.O.; Physician,Non-Staff Joseph Patient Name: SANGEETA TOLBERT MR#: [id number] : 1985 Exam Date: 03/07/2024 Ordering Doctor: DR Jose Jama . RADIOLOGY REPORT PROCEDURE: MM TOMOSYNTHESIS SCREENING BI COMPARISON: MM TOMOSYNTHESIS DIAGNOSTIC BI, 02/17/2023. INDICATIONS: Screening Calculator Name NCI Breast Cancer Risk Assessment Tool 5 Year Breast Cancer Risk 0.60% Lifetime Breast Cancer Risk 10.20% Personal Breast Cancer No Personal Ovarian Cancer No Treatments None Family Cancers None LOCATION: [facility] BREAST COMPOSITION: The breasts are heterogeneously dense,which may obscure small masses. FINDINGS: DIAGNOSTIC CATEGORY 2--BENIGN FINDING. NO CHANGE FROM COMPARISON. This exam includes additional mammographic views for implant evaluationand shows no visible implant abnormality. RIGHT BREAST: No significant suspicious finding. LEFT BREAST: No significant suspicious finding. RECOMMENDATIONS: ROUTINE MAMMOGRAM AND CLINICAL EVALUATION IN 12 MONTHS. PLEASE NOTE: A NORMAL MAMMOGRAM DOES NOT EXCLUDE THE POSSIBILITY OFBREAST CANCER. A CLINICALLY SUSPICIOUS PALPABLE LUMP SHOULD BE BIOPSIED. Dictated by: Yuri Albarado MD on 03/07/2024 at 13:21 Approved by: Yuri Albarado MD on 03/07/2024 at 13:22 Dictated By: Yuri Albarado M.D. Signed By:03/07/24 1323 DD/ 1322 TD/TT: Anatomic Pathology Manager: Authorizing ProviderResult TypeResult StatusCorey Evita DOCLINISYNC IMAGINGFinal Result * Pap Smear (02/29/2024 12:00 AM EST)Specimen (Source)Anatomical Location / LateralityCollection Method / VolumeCollection TimeReceived TimeSwabCervical swab / Unknown Narrative Authorizing ProviderResult TypeResult StatusCorey Evita DOLAB CYTOLOGY ORDERABLESFinal ResultPerforming OrganizationAddressCity/State/ZIP CodePhone Number EXTERNAL LAB * THINPREP PAP AND HPV MRNA E6/E7 W/RFL HPV 16,18/45 (12/27/2022 3:55 PM EDT) Narrative Authorizing ProviderResult TypeResult StatusCorey Evita DOLAB BLOOD ORDERABLES Final ResultPerforming OrganizationAddressCity/State/ZIP CodePhone Number EXTERNAL LAB from Last 3 Months or Most Recently Relevant to Health Maintenance Insurance Care Teams Team MemberRelationshipSpecialtyStart DateEnd Date Ghislaine Chauhan MD [address] [place] [address] PCP - GeneralFamily Medicine12/08/22
--- OUTSIDE RECORDS SUMMARY | 2025-03-04 12:49 | XMS_ITS | Encounter Summary ---
Author Organization [facility] Address [address] [place] [address] Care Team Providers Care Suppository Molding Machine Operator Name Role Phone Ghislaine Chauhan MD Primary Care Provider [phone] Encounter Details DateTypeDepartmentCare Team (Latest Contact Info)Fycnjhwnhjz32/16/2025amboo flowsheet [facility] [address] [place] [address] [place] [address] Jose Jama DO [address] [place], [facility] Social History Tobacco UseTypesPacks/DayYears UsedDateSmoking Tobacco: NeverSmokeless Tobacco: NeverAlcohol UseStandard Drinks/WeekCommentsYes0 (1 standard drink = 0.6 oz pure alcohol)Caffeine:1-2 cups per dayCommentsUnknownSex and Gender InformationValueDate RecordedSex Assigned at BirthNot on fileLegal SexFemale 06/01/2022 8:14 PM EDTGender IdentityNot on fileSexual OrientationNot on file documented as of this encounter Plan of Treatment DateTypeDepartmentCare Team (Latest Contact Info)Obqhiysvdvj50/22/2026 8:30 AM ESTProcedure Visit [facility] [address] [place] [address] Jose Jama DO [address] [place], [facility] documented as of this encounter Visit Diagnoses Not on filedocumented in this encounter Care Teams Team MemberRelationshipSpecialtyStart DateEnd Date Ghislaine Chauhan MD [address] [place] [phone] PCP - GeneralFamily Medicine12/08/22documented as of this encounter
--- OUTSIDE RECORDS SUMMARY | 2025-03-04 12:49 | XMS_ITS | Clinical Summary ---
Author Organization [facility] Address [address] [place] [address] Care Team Providers Care Design Editor Name Role Phone Nellie Goldentt Primary Care Provider [phone] Allergies No known active allergies Medications MedicationSigDispense QuantityRefillsLast FilledStart DateEnd DateStatus buPROPion 150 MG tablet XL TAKE 3 TABLETS BY MOUTH EACH [id number] Active Problems ProblemNoted DateDiagnosed DateBreast zscceyi5506/20/2018Benign neoplasm of skin 06/06/2017Neoplasm of uncertain behavior of skin05/17/2017 Social History Tobacco UseTypesPacks/DayYears UsedDateSmoking Tobacco: NeverSmokeless Tobacco: NeverAlcohol UseStandard Drinks/WeekCommentsNo0 (1 standard drink = 0.6 oz pure alcohol)CommentsUnknownSex and Gender InformationValueDate RecordedSex Assigned at BirthNot on fileLegal KkgPfytxp68/16/2018 3:49 PM ESTGender Identity Afxogk8605/05/2017 3:58 PM ESTSexual OrientationNot on file Last Filed Vital Signs Vital SignReadingTime TakenCommentsBlood Fvmsatxm54/6504 9:54 AM EDT Ntcpz4443 9:54 AM ODTNvwulhhwjlq80.8 ??C (98.2 ??F)06/06/2017 9:46 AM EDTRespiratory Zbrc3920 2:40 PM ESTOxygen Vaqydjysmd49%05/25/2017 2:40 PM ESTInhaled Oxygen Concentration--Xvuxvb53.5 kg (124 lb 8 oz)06/20/2018 9:54 AM FCWGnhuuc304.1 cm (5' 5 )06/20/2018 9:54 AM EDTBody Mass Index20.72006/20/2018 9:54 AM EDT Plan of Treatment Health MaintenanceDue DateLast DoneCommentsHEPATITIS C VIRUS YJMDBGKYN69/11/1984 BJXNQIV93 1983HIV SCREENING DMQNXURSGW43/11/1999HEP B VACCINE (1 of 3 - 19+ 3-dose series)10/28/2002TDAP (ADULT)10/28/2002CERVICAL CANCER SCREENING FAUPDFUIXU04/11/2005HPV VACCINE (1 - 3-dose SCDM series)10/28/2010LIPID RJGXFQGYO82/11/2024MAMMOGRAM SCREENING DBQDURDJSW87/11/2024OVID-19 VACCINE ( - 2024- season)2024INFLUENZA VACCINE (#1)2024PNEUMOCOCCAL VACCINE SERIESAged OutNo longer eligible based on patient's age to complete this [place] [address] Care Teams Team MemberRelationshipSpecialtyStart DateEnd Date Holger Golden DO PCP - GeneralFamily Medicine05/17/17
== END 2025-03-04 12:45 | disposition home or self-care (01) ==
LOC: LAB 12:44
PROVIDERS: Visit Provider Obstetrics & Gynecology
DX: Z01.419 Encounter for gynecological examination (general) (routine) without abnormal findings (principal)
CPT/HCPCS: 88175